=== PATIENT | male | born 1955 | race Caucasian/White ===

== ENCOUNTER → 2017-12-16 | Outpatient (CLI) | payer BC ==
[~2017-12-16] MED LIST: FLUT1DIS27; GLIM4TAB; METF-380; METH4TAB PO; MNTL10T; PGLT30T; RSG4T; RT-COMBINH; SITA100T
--- NOTE | 2017-12-16 14:13 | Diagnostic Imaging Report ---
Bilateral knees at 1:55 Indication: Injury, knee pain. Three views of each knee joint were obtained. There are no prior studies available for comparison. There is no fracture, dislocation or acute bony abnormality evident. However there is severe degenerative disease involving both knee joints. Specifically, there is narrowing of the medial compartments of each knee joint and the patellofemoral spaces. There is also extensive chondrocalcinosis of both menisci. The lateral compartments are fairly well maintained. The soft tissues are unremarkable for an acute abnormality. Impression: 1. There is no evidence for an acute bony abnormality. 2. There is severe degenerative disease involving both knee joints including narrowing of the medial compartment of each knee joint and chondrocalcinosis. Dictated by: Dictated on workstation # [id number]
--- NOTE | 2017-12-16 14:17 | Diagnostic Imaging Report ---
EXAMINATION: Left shoulder at 1:52 p.m. INDICATION: Shoulder pain. Three views were obtained. FINDINGS: There is no fracture, dislocation, or acute bony abnormality evident. There is mild degenerative disease of the glenohumeral joint and at least moderate degenerative disease of the acromioclavicular joint. The soft tissues are unremarkable. IMPRESSION: 1. There is no evidence for an acute bony abnormality. 2. If there is clinical concern regarding an injury to the rotator cuff or labrum, then MRI would be recommended for additional evaluation. Dictated by: Dictated on workstation # [id number]
== END ==
LOC: RAD 13:14
PROVIDERS: ATTEND Internal Medicine
DX: S46.002A Unspecified injury of muscle(s) and tendon(s) of the rotator cuff of left shoulder, initial encounter (principal); M17.0 Bilateral primary osteoarthritis of knee; M11.261 Other chondrocalcinosis, right knee; M11.262 Other chondrocalcinosis, left knee
CPT/HCPCS: 73030

== ENCOUNTER → 2017-12-23 | Outpatient (CLI) | payer BC ==
--- NOTE | 2017-12-23 17:38 | Diagnostic Imaging Report ---
PROCEDURE: MRI left upper extremity without contrast. TECHNIQUE: Multiplanar, multisequence non contrast-enhanced MRI of the left upper extremity was accomplished. INDICATION: Chronic left shoulder pain. Reports falling out of bed one year ago. FINDINGS: There is marked thickening of the distal supraspinatus tendon with some increased T2 signal. There is no evidence of full-thickness tear. Infraspinatus and subscapularis tendons appear intact. Long head of the biceps is in the bicipital groove and attaches to the labrum in normal fashion. Labrum appears in good position without obvious tear. Humeral head is in good alignment with the glenoid. Articulating cartilage appears normal. No marrow changes are seen. The AC joint shows good alignment. There is moderate hypertrophic change present. Small undersurface osteophyte is noted. There is noted a small effusion within the synovial space of the shoulder as well as a trace of fluid in the subacromial bursa. No evidence of paralabral cyst. IMPRESSION: 1. There is marked tendinopathy noted of the distal anterior supraspinatus tendon which is diffusely thickened and edematous. There is intersubstance tear though no evidence of a full-thickness tear. 2. Hypertrophic changes of the AC joint with small undersurface osteophyte. Dictated by: Dictated on workstation # [id number]
== END ==
LOC: RAD 15:57
PROVIDERS: ATTEND Internal Medicine
DX: M67.814 Other specified disorders of tendon, left shoulder (principal)
CPT/HCPCS: 73221

== ENCOUNTER 2018-03-12 13:17 | Emergency (ER) | payer BC ==
[~2018-03-12] VITALS: Ht 175.3 cm; Wt 99.8 kg
--- NOTE | 2018-03-12 14:13 | ED Lower Extremity ---
General Chief Complaint: Lower Extremity Stated Complaint: KNEE PAIN Source: patient Exam Limitations: no limitations History of Present Illness Date Seen by Provider: Mar 12, 2018 Time Seen by Provider: 14:01 Initial Comments Patient presents to the ER by private conveyance with chief complaint that he has chronically bad knees and shoulders that he associates with his job. He's following Drs. Stanton because he had a frozen left shoulder and that has been improving area they were noting his right knee pain and took some x-rays of a few months ago. No ones worked on his never had an injection and it is never been on steroids for it. He can't take NSAIDs because he has severe asthma that even put him in the ICU intubated before. He is using Tylenol as not helping. Most recently in the last to 3 months his knee pain on his right knee is been acting up and then yesterday after going to [place] walking around he was getting lack of extension in a lot of pain in his right knee but then this morning when he got up he was barely able to even stand on it and couldn't extend it all away. He was told the x-rays revealed he had arthritis. Never had a surgery or scope on the knee. Allergies and Home Medications Allergies Coded Allergies: No Known Drug Allergies (Unverified Allergy, Mild, 10/31/08) Home Medications Methylprednisolone 4 Mg/Dose-Pack Tab.ds.pk, 0 PO UD FOR ALLERGIC REACTION Prescribed by: DELORIS AVERY on 10/31/082047 Patient Home Medication List Home Medication List Reviewed: Yes Review of Systems Constitutional: No chills, No diaphoresis EENTM: No ear discharge, No ear pain Respiratory: No cough, No short of breath Cardiovascular: No chest pain, No edema Gastrointestinal: No abdominal pain, No constipation, No nausea Genitourinary: No discharge, No dysuria Musculoskeletal: No back pain; joint pain Skin: No lumps, No rash Past Fbdgwnd-Djrhds-Nhnmmv Hx Patient Social History Alcohol Use: Occasionally Uses Recreational Drug Use: No Smoking Status: Never a Smoker Recent Foreign Travel: No Contact w/Someone Who Travel: No Past Medical History Reproductive Disorders: No Physical Exam Vital Signs Vital Signs - First Documented 03/12/18 13:55 Temp 98.9 Pulse 88 Resp 18 B/P (MAP) 144/89 (107) Pulse Ox 98 O2 Delivery Room Air Capillary Refill : Height, Weight, BMI Height: '" Weight: lbs. oz. kg; BMI Method: General Appearance: WD/WN, no apparent distress HEENT: PERRL/EOMI, pharynx normal Cardiovascular: normal peripheral pulses, regular rate, rhythm Respiratory: no respiratory distress, no accessory muscle use Knees: left knee non-tender, left knee normal inspection, left knee normal range of motion, left knee no evidence of injury; right knee joint effusion (mod ), right knee pain, right knee soft tissue tenderness, right knee swelling (no discoloration, erythema, warmth.), right knee other (non-ballotable patella) Ankles: bilateral ankle non-tender, bilateral ankle normal inspection, bilateral ankle normal range of motion, bilateral ankle no evidence of injury Neurologic/Tendon: normal sensation, normal motor functions, responds to pain Neurologic/Psychiatric: alert, normal mood/affect Skin: normal color, warm/dry Procedures/Interventions Progress Patient's right knee was cleaned thoroughly with alcohol in the upright flexed position and then cleaned again with chlorhexidine soap water and allowed to dry. We then draped in the usual sterile fashion using sterile gloves week use a 25-gauge 1-1/2 inch needle to locate the right knee intra-articular space. Only a small amount of fluid was able to be drawn less than a milliliter. We then put 40 mg of Depo-Medrol and 2 mL each of 1% lidocaine and half percent Marcaine without epinephrine and the joint space. The patient tolerated procedure well. Needle nicholas was then covered with a Band-Aid. Progress/Results/Core Measures Results/Orders My Orders Orders - ORION PAZ Methylprednisolone Acetate Inj (Depo-Med (03/12/18 14:30) Bupivacaine 0.5% Injection (Sensorcaine (03/12/18 14:30) Lidocaine 1% Inj 20 Ml (Xylocaine 1% Inj (03/12/18 14:30) Vital Signs/I&O 03/12/18 03/12/18 13:55 14:35 Temp 98.9 Pulse 88 77 Resp 18 16 B/P (MAP) 144/89 (107) 138/79 Pulse Ox 98 98 O2 Delivery Room Air Room Air Progress Progress Note : Time: 14:21 Progress Note We discussed injecting the knee versus just trying orals versus just following up with the surgeon and I suggest she follow-up with surgeon regardless of what we do. The patient after hearing the risks, benefits and alternatives have elected to have any injections were going to use 40 mg of Depo-Medrol and a solution of 2 cc of 0.5% Marcaine without epinephrine and 2 cc of 1% lidocaine without epinephrine. We may pull a little fluid off as he does have a decent sized effusion. He has chondrocalcinosis on the anterior medial approach so we may have to try and anterior lateral approach. Diagnostic Imaging Diagonstic Imaging: Xray (12/16/17) Plain Films/CT/US/NM/MRI: knee Comments NAME: LEATHA MORENO [facility] REC#: [id number] PHYSICIAN: KAVITA VELASQUEZ DO CC: REAGAN SOOD MD; KAVITA VELASQUEZ DO Page 1 of 1 RADIOLOGY REPORT [facility]IA [facility]. [place], [place] CC: REAGAN SOOD MD; KAVITA VELASQUEZ DO Page 1 of 1 RADIOLOGY REPORT NAME: LEATHA MORENO [facility] REC#: [id number] PT STATUS: REG CLI : 1955 PHYSICIAN: KAVITA VELASQUEZ DO ADMIT DATE: 12/16/17/RAD Signed Date of Exam: 12/16/17 KNEE, 3 VIEWS, BILATERAL Bilateral knees at 1:55 Indication: Injury, knee pain. Three views of each knee joint were obtained. There are no prior studies available for comparison. There is no fracture, dislocation or acute bony abnormality evident. However there is severe degenerative disease involving both knee joints. Specifically, there is narrowing of the medial compartments of each knee joint and the patellofemoral spaces. There is also extensive chondrocalcinosis of both menisci. The lateral compartments are fairly well maintained. The soft tissues are unremarkable for an acute abnormality. Impression: 1. There is no evidence for an acute bony abnormality. 2. There is severe degenerative disease involving both knee joints including narrowing of the medial compartment of each knee joint and chondrocalcinosis. Dictated by: Dictated on workstation # [id number] Dict: 12/16/17 1408 Trans: 12/17/17 1143 Interpreted by: REAGAN SOOD MD Electronically signed by: REAGAN SOOD MD 12/17/17 1143 Departure Impression Primary Impression: Knee pain Qualified Codes: M25.561 - Pain in right knee Additional Impression: Osteoarthritis Qualified Codes: M17.11 - Unilateral primary osteoarthritis, right knee Disposition: 01 HOME, SELF-CARE Condition: Improved Departure-Patient Inst. Decision time for Depature: 15:09 Referrals: KAVITA VELASQUEZ DO (PCP/Family) Primary Care Physician DARRIN STANTON MD Patient Instructions: Chronic Knee Pain (DC) Add. Discharge Instructions: Follow-up with your orthopedic surgeon in the next 2-4 weeks as needed for your right knee pain. Follow-up with your primary care doctor as needed. Continue using Tylenol 1000 mg every 8 hours as needed. If you need something more for pain you can use one tablet of the hydrocodone every 6 hours. All discharge instructions reviewed with patient and/or family. Voiced understanding. Scripts Diclofenac Sodium (Voltaren) 100 Gm Gel..gram. 1 GM TP Q8H PRN for PAIN-MODERATE for 14 Days, #1 TUBE 1 Refill Prov: ORION PAZ 03/12/18 Hydrocodone Bit/Acetaminophen (Hydrocodone/Acetaminophen 5/325mg Tablet) 1 Tab Tab 1 EACH PO Q6H PRN for BREAKTHROUGH PAIN, #15 TAB 0 Refills Prov: ORION PAZ 03/12/18 Copy Copies To 1: KAVITA VELASQUEZ DO; DARRIN STANTON MD, TITUS J Mar 12, 2018 14:13
[2018-03-12] MEDS ORDERED: methylPREDNISolone 40 MG/ML (DEPO MEDROL) VIAL IA ONE (14:30)
[2018-03-12] MEDS ORDERED: BUPIVACAINE 0.5% 30 ML (SENSORCAINE) VIAL INJ ONE (14:30)
[2018-03-12] MEDS ORDERED: LIDOCAINE 1% INJ 20 ML 20 ML VIAL INJ ONE (14:30)
[2018-03-12] MEDS ORDERED: DICL100G18 TP (15:12)
[2018-03-12] MEDS ORDERED: ACHD5005 PO (15:12)
[2018-03-12 15:38] VITALS: BP 138/79
== END 2018-03-12 15:39 | disposition home or self-care (01) ==
LOC: EDUNIT# 13:17 → ER 13:18
DX: M17.0 Bilateral primary osteoarthritis of knee (principal); J45.909 Unspecified asthma, uncomplicated; Z79.52 Long term (current) use of systemic steroids
CPT/HCPCS: 96372

== ENCOUNTER 2018-06-19 20:25 | Emergency (ER) | payer BC ==
[~2018-06-19] VITALS: Ht 185.4 cm; Wt 113.4 kg
[~2018-06-19 20:25] MED LIST changes: +ACHD5005 PO; +DICL100G18 TP
--- NOTE | 2018-06-19 21:04 | ED Upper Extremity ---
General Chief Complaint: Upper Extremity Stated Complaint: L SHOULDER SURGERY/WRIST AND HAND SWELLING Nursing Triage Note: Pt ambulated to triage . Pt reports having L shoulder surgery on Tue to remove some cartiledge due to prior injury and now c/o hand/wrist pain and swelling. Pt reports hand/wrist pain began on way home after surgery. Pt reports swelling began today and now pt is unable to remove wedding ring. Pt's fingers appear blanched. Pt able to move fingers and has feeling in fingers. Nursing Sepsis Screen: No Definite Risk Source: patient Exam Limitations: no limitations History of Present Illness Date Seen by Provider: Jun 19, 2018 Time Seen by Provider: 21:04 Allergies and Home Medications Allergies Coded Allergies: No Known Drug Allergies (Unverified Allergy, Mild, 10/31/08) Home Medications Diclofenac Sodium 100 Gm Gel..gram., 1 GM TP Q8H PRN for PAIN-MODERATE Prescribed by: ORION PAZ on 03/12/18 1512 Hydrocodone Bit/Acetaminophen 1 Tab Tab, 1 EACH PO Q6H PRN for BREAKTHROUGH PAIN Prescribed by: ORION PAZ on 03/12/18 1512 Methylprednisolone 4 Mg/Dose-Pack Tab.ds.pk, 0 PO UD FOR ALLERGIC REACTION Prescribed by: DELORIS AVERY on 10/31/082047 Past Sekecie-Wizzww-Wjqktp Hx Patient Social History 2nd Hand Smoke Exposure: No Recent Foreign Travel: No Contact w/Someone Who Travel: No Recent Infectious Disease Expo: No Past Medical History Respiratory: Yes Cardiac: No Neurological: No Reproductive Disorders: No Sexually Transmitted Disease: No Gastrointestinal: No Musculoskeletal: Yes (arthritis) Endocrine: Yes Blood Disorders: No Physical Exam Vital Signs Vital Signs - First Documented 06/19/18 20:40 Temp 98.6 Pulse 83 Resp 14 B/P (MAP) 152/84 (106) Pulse Ox 93 O2 Delivery Room Air Capillary Refill : Less Than 3 Seconds Height, Weight, BMI Height: 6'1.00" Weight: 250lbs. oz. 113.853613et; BMI Method:Stated Progress/Results/Core Measures Results/Orders Vital Signs/I&O 06/19/18 20:40 Temp 98.6 Pulse 83 Resp 14 B/P (MAP) 152/84 (106) Pulse Ox 93 O2 Delivery Room Air Blood Pressure Mean: 106 Departure Impression Primary Impression: Swelling of left hand Additional Impression: Post-op pain Disposition: 01 HOME, SELF-CARE Condition: Stable/Unchanged Departure-Patient Inst. Decision time for Depature: 21:22 Referrals: KAVITA VELASQUEZ DO (PCP/Family) Primary Care Physician Patient Instructions: How to Use a Shoulder Sling Add. Discharge Instructions: Elevate the arm as much as possible throughout the night to help facilitate and going down. Use ice to the sore areas at 20 minute intervals. Take your home medications as previously prescribed. Return back to the emergency room for any worsening symptoms or concerns as needed. Call Dr. Stanton's office tomorrow morning to schedule a closer appointment time. All discharge instructions reviewed with patient and/or family. Voiced understanding. LANI MUNOZ Jun 19, 2018 21:04
[2018-06-19 21:57] VITALS: BP 152/84
== END 2018-06-19 21:57 | disposition home or self-care (01) ==
LOC: EDUNIT# 20:25 → ER 20:26
DX: G89.18 Other acute postprocedural pain (principal); M79.642 Pain in left hand; Z98.890 Other specified postprocedural states; Z79.52 Long term (current) use of systemic steroids
CPT/HCPCS: 99282

== ENCOUNTER → 2018-12-04 | Outpatient (CLI) | payer BC ==
[~2018-12-04] VITALS: Ht 185.4 cm; Wt 113.4 kg
[~2018-12-04] MED LIST changes: +CATHETER FLUSH 10 ML SYR IV PRN; +REGADENOSON 0.4 MG/5 ML SYR (LEXISCAN) IV ONE
--- NOTE | 2018-12-04 15:20 | STRESS TEST ---
DATE OF SERVICE: 12/04/2018 NUCLEAR MYOVIEW REPORT REFERRING PHYSICIAN: Dr. Joel Gregg. In summary, the patient was injected with 10.65 mCi of technetium-99 Myoview and the resting images were obtained. Then, the patient received a stress dose of 31.4 mCi of technetium-99 Myoview. The test was supervised by Dr. Gregg. The resting and stress images were reviewed and compared in the short axis, horizontal long axis, and vertical long axis views. Review of the images showed diaphragmatic attenuation affecting the quality of the images with mild decreased uptake at the inferior wall with no significant reversibility and no significant ischemia. SSS is 0. TID value 0.97. On the gated images, the left ventricle appeared to be normal size with normal contractility. The calculated ejection fraction 58%. CONCLUSION: 1. Diaphragmatic attenuation affecting the quality of the images with mild decreased uptake at the inferior wall, no significant ischemia or infarction was noted. 2. Normal left ventricular size with normal contractility. Calculated ejection fraction 58%. Job ID: [id number] DocumentID: [id number] Dictated Date: 12/04/2018 11:35:57 Cinnamon Grinder Date: 12/04/2018 15:17:07 Dictated By: JUNG SHERWOOD MD
== END ==
LOC: CARD 06:34
PROVIDERS: ATTEND Internal Medicine
DX: I10 Essential (primary) hypertension (principal)
CPT/HCPCS: 78452; 93017

== ENCOUNTER 2018-12-27 07:26 | Inpatient (IN) | payer BC ==
--- NOTE | 2018-12-18 11:40 | HISTORY AND PHYSICAL ---
DATE OF SERVICE: ADMISSION HISTORY AND PHYSICAL DATE OF ADMISSION: 12/27/2018. This will be for inpatient admission on 12/27/2018 for left total knee arthroplasty. The patient will require regular inpatient admission due to gait abnormalities, pain management issues and comorbidities. HISTORY OF PRESENT ILLNESS: The patient is a 63-year-old gentleman with longstanding progressive bilateral knee pain, left worse than right. He has undergone treatment with injections without relief. His radiographs reveal severe tricompartmental osteoarthritis. He reports because of the knee. REVIEW OF SYSTEMS: No chest pain, no shortness of breath. No dysuria. PAST MEDICAL HISTORY: Type 2 diabetes, asthma, arthritis, obstructive sleep apnea. PAST SURGICAL HISTORY: Left knee arthroscopy, trigger finger, left shoulder manipulation. FAMILY HISTORY: Noncontributory. PRIMARY CARE PROVIDER: Dr. Gregg. MEDICATIONS: 1. Tresiba. 2. Metformin. 3. Advair. 4. Salmeterol. 5. Gabapentin 6. Enalapril. 7. Montelukast. 8. Finasteride. 9. NovoLog. ALLERGIES: No known drug allergies. SOCIAL HISTORY: The patient drinks alcohol occasionally. Denies tobacco use. PHYSICAL EXAMINATION: GENERAL: The patient is a well-developed, well-nourished, in no acute distress. HEENT: Normocephalic, atraumatic. Pupils are equal, round and reactive to light. Oropharynx is clear. NECK: Supple. No lymphadenopathy. LUNGS: Clear to auscultation bilaterally. HEART: Regular rate and rhythm. ABDOMEN: Soft, nontender, nondistended. EXTREMITIES: The left knee demonstrates varus alignment. Ambulates with an antalgic gait. Range of motion 0/2/115. There is no varus valgus laxity. Negative anterior and posterior drawer. Marked patellofemoral crepitus. Moderate effusion is noted. There is no erythema or warmth. IMPRESSION: Left knee osteoarthritis, severe unresponsive to conservative measures. PLAN: Left total knee arthroplasty. The risks, benefits, options, ramifications and recovery were discussed at length with the patient. He understands and wishes to proceed. This will be for inpatient admission, date of service, date of surgery on 12/27/2018. Job ID: [id number] DocumentID: [id number] Dictated Date: 12/18/2018 11:16:49 Wire Stripper Date: 12/18/2018 11:39:57 Dictated By: DARRIN CHARLTON MD
--- NOTE | 2018-12-22 09:57 | NUR ---
PREOP SENT OVER A COPY OF THE PATIENTS LIST, I HAD A LIST FAXED OVER FROM [facility] AND COMPARED THAT WITH THE PATIENTS LIST. I CALLED THE PATIENT TO CLARIFY SOME DOSE CHANGES. DEMETRIUS FILLED: 12-14-18 COMBIVENT RESPIMAT 1 PUFF Q6H PRN 12-08-18 FINASTERIDE 5MG HS 12-08-18 METFORMIN 1000MG BID 12-08-18 SINGULAIR 10MG DAILY 12-08-18 NOVOLOG FLEXPEN 5 UNITS DAILY 12-08-18 ALBUTEROL HFA (STATES WAS FROM URGENT CARE, USUALLY ONLY USES COMBIVENT/ADVAIR) 11-29-18 ADVAIR 500 BID 11-29-18 GABAPENTIN 300MG BID (STATES HE TAKES 2 CAPSULES BID) 11-16-18 ENALAPRIL 10MG DAILY (STATES HE TAKES 2 DAILY) 11-13-18 DICLOFENAC GEL 1 GM Q8H PRN 03-26-18 TRESIBA 65 UNITS DAILY (STATES HE HAS A STOCK PILE AT HOME FROM WHEN HE DIDN'T TAKE IT SCHEDULED)
[2018-12-27] VITALS (13 sets, daily range): BP systolic 158–198; BP diastolic 76–104
[~2018-12-27] VITALS: Ht 185.4 cm; Wt 116.3 kg
[~2018-12-27 07:26] MED LIST changes: -CATHETER FLUSH 10 ML SYR IV PRN; +ENAL10TA PO; +FINA5TAB6 PO; +FLUT1DIS27 IH; +GABA-488 PO; +INSU100I14 SQ; +INSU100I32 SQ; +IPRA4AER IH; +METF-399 PO; +MONT10TA24 PO; -REGADENOSON 0.4 MG/5 ML SYR (LEXISCAN) IV ONE
[2018-12-27] MEDS ORDERED: diphenhydrAMINE 50 MG/ML INJ (BENADRYL) IVP PRN (07:30)
[2018-12-27] MEDS ORDERED: morphine PCA 100 MG/100 ML BAG IV PRN (07:30)
[2018-12-27] MEDS ORDERED: ONDANSETRON 4 MG/2 ML (SDV) Z0FRAN IVP PRN ×2 (07:30→11:15)
[2018-12-27] MEDS ORDERED: ACETAMINOPHEN 325 MG TABLET PO PRN (07:30)
[2018-12-27] MEDS ORDERED: CEFUROXIME INJECTION 750 MG in WATER (STERILE) FOR INJECTION 7.5 ML IV ONE (07:45)
[2018-12-27] MEDS ORDERED: INTRA-ARTICULAR IU ONE ×5 (07:45)
[2018-12-27] MEDS: LACTATED RINGERS 1,000 ML IV PRN ×2 (07:50→09:50)
[2018-12-27] MEDS ORDERED: CEFUROXIME 1.5 GM (ZINACEF) VIAL ONE (07:57)
[2018-12-27] MEDS ORDERED: MIDAZOLAM 2 MG/2 ML (VERSED) VIAL ONE (08:33)
[2018-12-27] MEDS ORDERED: SEVOFLURANE (ULTANE) 15 ML INHAL SOLN ONE ×2 (08:33→10:44)
[2018-12-27] MEDS ORDERED: fentaNYL INJECTION 100 MCG/2 ML AMP ONE ×2 (08:33→09:34)
[2018-12-27] MEDS ORDERED: proPOfol 200 MG/20 ML (DIPRIVAN) VIAL IV ONE (08:33)
[2018-12-27] MEDS ORDERED: BUPIVACAINE 0.5% 30 ML (SENSORCAINE) VIAL ONE (08:33)
[2018-12-27] MEDS ORDERED: TRANEXAMIC ACID 100 MG/ML 10 ML INJECTION IV ONE (08:33)
[2018-12-27] MEDS ORDERED: LIDOCAINE PF 2% 5 ML (XYLOCAINE) VIAL ONE (08:33)
[2018-12-27] MEDS ORDERED: ONDANSETRON 4 MG/2 ML (SDV) Z0FRAN ONE (08:33)
--- NOTE | 2018-12-27 09:13 | Progress Note-Pre Operative ---
Pre-Operative Progress Note H&P Reviewed The H&P was reviewed, patient examined and no changes noted. Date Seen by Provider: Dec 27, 2018 Time Seen by Provider: 07:35 Date H&P Reviewed: Dec 27, 2018 Time H&P Reviewed: 09:13 Pre-Operative Diagnosis: left knee primary osteoarthritis DARRIN CHARLTON MD Dec 27, 2018 09:13
--- NOTE | 2018-12-27 09:14 | Progress Note-Post Operative ---
Post-Operative Progess Note Surgeon (s)/Barge Worker (s) Surgeon DARRIN CHARLTON MD Barge Worker: Pedro Tobias Pre-Operative Diagnosis left knee primary osteoarthritis Post-Operative Diagnosis left knee primary osteoarthritis Procedure & Operative Findings Date of Procedure 12/27/18 Procedure Performed/Findings left total knee arthroplasty Anesthesia Type GETA Estimated Blood Loss Estimated blood loss (mL): minimal Specimens/Packing Specimens Removed none Packing: none DARRIN CHARLTON MD Dec 27, 2018 09:14
--- NOTE | 2018-12-27 09:15 | Progress Note-Post Operative ---
Post-Operative Progess Note Surgeon (s)/Corporate Coordinator (s) Surgeon DARRIN CHARLTON MD Corporate Coordinator: Pedro Tobias Pre-Operative Diagnosis left knee primary osteoarthritis Post-Operative Diagnosis left knee primary osteoarthritis Procedure & Operative Findings Date of Procedure 12/27/18 Procedure Performed/Findings left total knee arthroplasty Anesthesia Type GETA Estimated Blood Loss Estimated blood loss (mL): minimal Specimens/Packing Specimens Removed none Packing: none DARRIN CHARLTON MD Dec 27, 2018 09:15
[2018-12-27] MEDS ORDERED: OXYC1TAB87 PO (09:16)
--- NOTE | 2018-12-27 09:18 | D/C HH Face to Face Order ---
D/C Face to Face Orders Instructions for Patient Via [facility], Patient Instructions/FollowUp: three weeks Physician to follow Patient: three weeks Discharge Diet for Home: Regular Diet Patient Data-Allergies,Ht & Wt Patient Allergies: Coded Allergies: No Known Drug Allergies (Unverified , 12/21/18) Height (Feet): 6 Height (Inches): 1.00 Weight (Pounds): 256 Weight (Ounces): 8.0 Home Health Need/Face to Face Date of Face to Face: Dec 27, 2018 Clinical Findings: Instability, Muscle weakness, Non or partial weight bearing, Pain with ambulation, Unsteady gait I have seen Pt [id number]: Yes Discharged To: Home Diagnosis/Conditions: left total knee arthroplasty Patient is Homebound due to: Azucena fall risk due to instabilty, Muscle we akness, Pain w/ambulation Homebound Status Due to the above stated illness, injury or surgical procedure (medical condition or diagnosis) and associated clinical findings, the patient is homebound because of his/her inability to leave home except with aid of a supportive device and/or person AND leaving the home requires a considerable and taxing effort or is medically contraindicated. Pt req the following assistanc: [facility] Nursing Orders Home Health Services Order: Physical Therapy-Evaluate & Treat DC left knee omero and apply steri strips 01/10/19 ok to begin PT on Tuesday [facility] Start Date: Dec 27, 2018 Therapy Orders Therapy Orders: Physical Therapy, PT to assess for OT Therapy Specific Orders: Eval assistive deivces, Gait training, Increase strength/endurance, Provider maintenance therapy, Restore ROM Certify Stmt I certify that this patient is under my care and that I, a nurse practitioner or a physician; a ex assistant/program director working with me, had a face to face encounter that - meets the physician face to face encounter requirements with this patient as dated. DARRIN CHARLTON MD Dec 27, 2018 09:18
--- OUTSIDE RECORDS SUMMARY | 2018-12-27 10:11 | XMS REPORT | Continuity of Care Document ---
Author Organization Unknown Address Unknown Allergies Active Description Code Type Severity Reaction Onset Reported/Identified Relationship to Patient Clinical Status Yes No Known Drug Allergies [id number] Drug Allergy Mild N/A 10/31/2008 Yes No Known Drug Allergies [id number] Drug Allergy Unknown N/A 12/21/2018 Medications There is no data. Problems Date Dx Coded Attending Type Code Diagnosis Diagnosed By 07/28/2009 Ot V12.72 PERSONAL HISTORY OF COLONIC POLYPS 07/28/2009 Ot V67.09 SURGERY FOLLOW- UP, OTHER SURGERY 01/09/2016 KAVITA VELASQUEZ DO Ot E11.65 TYPE 2 DIABETES MELLITUS WITH HYPERGLYCE 01/30/2016 KAVITA VELASQUEZ DO Ot E11.65 TYPE 2 DIABETES MELLITUS WITH HYPERGLYCE 06/14/2016 KAVITA VELASQUEZ DO Ot E11.65 TYPE 2 DIABETES MELLITUS WITH HYPERGLYCE 06/16/2016 KAVITA VELASQUEZ DO Ot E11.65 TYPE 2 DIABETES MELLITUS WITH HYPERGLYCE 06/16/2016 KAVITA VELASQUEZ DO Ot J18.9 PNEUMONIA, UNSPECIFIED ORGANISM 06/20/2016 KAVITA VELASQUEZ DO Ot E11.65 TYPE 2 DIABETES MELLITUS WITH HYPERGLYCE 06/20/2016 KAVITA VELASQUEZ DO, Ot J18.9 PNEUMONIA, UNSPECIFIED ORGANISM 06/23/2016 KAVITA VELASQUEZ DO Ot E11.65 TYPE 2 DIABETES MELLITUS WITH HYPERGLYCE 06/23/2016 KAVITA VELASQUEZ DO, Ot J18.9 PNEUMONIA, UNSPECIFIED ORGANISM 12/16/2017 KAVITA VELASQUEZ DO Ot E11.65 TYPE 2 DIABETES MELLITUS WITH HYPERGLYCE 12/16/2017 KAVITA VELASQUEZ DO, Ot J18.9 PNEUMONIA, UNSPECIFIED ORGANISM 12/19/2017 KAVITA VELASQUEZ DO Ot M11.261 OTHER CHONDROCALCINOSIS, RIGHT KNEE 12/19/2017 KAVITA VELASQUEZ DO Ot M11.262 OTHER CHONDROCALCINOSIS, LEFT KNEE 12/19/2017 KAVITA VELASQUEZ DO Ot M17.0 BILATERAL PRIMARY OSTEOARTHRITIS OF KNEE 12/19/2017 VELASQUEZKAVITA CHAVEZ DO Ot S46.002A UNSP INJ MUSC/TEND THE ROTATOR CUFF OF L 12/22/2017 KAVITA VELASQUEZ DO Ot M11.261 OTHER CHONDROCALCINOSIS, RIGHT KNEE 12/22/2017 KAVITA VELASQUEZ DO Ot M11.262 OTHER CHONDROCALCINOSIS, LEFT KNEE 12/22/2017 VELASQUEZKAVITA CHAVEZ DO Ot M17.0 BILATERAL PRIMARY OSTEOARTHRITIS OF KNEE 12/22/2017 KAVITA VELASQUEZ DO Ot S46.002A UNSP INJ MUSC/TEND THE ROTATOR CUFF OF L 12/26/2017 KAVITA VELASQUEZ DO Ot M67.814 OTHER SPECIFIED DISORDERS OF TENDON, LEF 01/03/2018 KAVITA VELASQUEZ DO Ot M67.814 OTHER SPECIFIED DISORDERS OF TENDON, LEF 03/12/2018 ORION PAZ MD Ot J45.909 UNSPECIFIED ASTHMA, UNCOMPLICATED 03/12/2018 ORION PAZ MD Ot M17.0 BILATERAL PRIMARY OSTEOARTHRITIS OF KNEE 03/12/2018 ORION PAZ MD Ot M25.561 PAIN IN RIGHT KNEE 03/12/2018 ORION PAZ MD Ot 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 03/14/2018 ORION PAZ MD Ot J45.909 UNSPECIFIED ASTHMA, UNCOMPLICATED 03/14/2018 ORION PAZ MD Ot M17.0 BILATERAL PRIMARY OSTEOARTHRITIS OF KNEE 03/14/2018 ORION PAZ MD Ot M25.561 PAIN IN RIGHT KNEE 03/14/2018 ORION PAZ MD Ot Z79.52 [facility] (CURRENT) USE OF SYSTEMIC STER 06/19/2018 BERNOT LANI Ot G89.18 OTHER ACUTE POSTPROCEDURAL PAIN 06/19/2018 BERNOT, LANI Ot M79.642 PAIN IN LEFT HAND 06/19/2018 BERNOT LANI Ot Z79.52 [facility] (CURRENT) USE OF SYSTEMIC STER 06/19/2018 BERNOT LANI Ot Z98.890 OTHER SPECIFIED POSTPROCEDURAL STATES 12/08/2018 KAVITA VELASQUEZ DO Ot I10 ESSENTIAL (PRIMARY) HYPERTENSION 12/21/2018 KAVITA VELASQUEZ DO Ot I10 ESSENTIAL (PRIMARY) HYPERTENSION Procedures There is no data. Results Test Result Range Complete blood count (CBC) with automated white blood cell (WBC) differential - 06/14/16 17:15 Blood leukocytes automated count (number/volume) 9.6 10*3/uL 4.3-11.0 Blood erythrocytes automated count (number/volume) 5.03 10*6/uL 4.35-5.85 Venous blood hemoglobin measurement (mass/volume) 14.2 g/dL 13.3-17.7 Blood hematocrit (volume fraction) 43 % 40-54 Automated erythrocyte mean corpuscular volume 85 [foz_us] 80-99 Automated erythrocyte mean corpuscular hemoglobin (mass per erythrocyte) 28 pg 25-34 Automated erythrocyte mean corpuscular hemoglobin concentration measurement (mass/volume) 33 g/dL 32-36 Automated erythrocyte distribution width ratio 14.2 % 10.0- 14.5 Automated blood platelet count (count/volume) 286 10*3/uL 130-400 Automated blood platelet mean volume measurement 9.4 [foz_us] 7.4-10.4 Automated blood neutrophils/100 leukocytes 71 % 42-75 Automated blood lymphocytes/100 leukocytes 20 % 12-44 Blood monocytes/100 leukocytes 7 % 0-12 Automated blood eosinophils/100 leukocytes 2 % 0-10 Automated blood basophils/100 leukocytes 0 % 0-10 Blood neutrophils automated count (number/volume) 6.8 10*3 1.8-7.8 Blood lymphocytes automated count (number/volume) 1.9 10*3 1.0-4.0 Blood monocytes automated count (number/volume) 0.7 10*3 0.0- 1.0 Automated eosinophil count 0.2 10*3/uL 0.0-0.3 Automated blood basophil count (count/volume) 0.0 10*3/uL 0.0-0.1 Comprehensive metabolic panel - 06/14/16 17:15 Serum or plasma sodium measurement (moles/volume) 140 mmol/L 135-145 Serum or plasma potassium measurement (moles/volume) 4.4 mmol/L 3.6-5.0 Serum or plasma chloride measurement (moles/volume) 105 mmol/L 98-107 Carbon dioxide 24 mmol/L 21-32 Serum or plasma anion gap determination (moles/volume) 11 mmol/L 5-14 Serum or plasma urea nitrogen measurement (mass/volume) 16 mg/dL 7-18 Serum or plasma creatinine measurement (mass/volume) 1.16 mg/dL 0.60-1.30 Serum or plasma urea nitrogen/creatinine mass ratio 14 NRG Serum or plasma creatinine measurement with calculation of estimated glomerular filtration rate > NRG Serum or plasma glucose measurement (mass/volume) 169 mg/dL 70-105 Serum or plasma calcium measurement (mass/volume) 9.7 mg/dL 8.5-10.1 Serum or plasma total bilirubin measurement (mass/volume) 0.8 mg/dL 0.1-1.0 Serum or plasma alkaline phosphatase measurement (enzymatic activity/volume) 29 U/L 40-136 Serum or plasma aspartate aminotransferase measurement (enzymatic activity/volume) 14 U/L 5-34 Serum or plasma alanine aminotransferase measurement (enzymatic activity/volume) 18 U/L 0-55 Serum or plasma protein measurement (mass/volume) 7.1 g/dL 6.4-8.2 Serum or plasma albumin measurement (mass/volume) 4.1 g/dL 3.2-4.5 Hemoglobin A1c - 06/14/16 17:15 Hemoglobin A1c 8.8 % 4.5-6.2 THYROID STIMULATING HORMONE - 06/14/16 17:15 THYROID STIMULATING HORMONE 1.29 u[iU]/mL 0.35-4.94 Methicillin resistant Staphylococcus aureus (MRSA) screening culture - 12/21/18 13:25 Methicillin resistant Staphylococcus aureus (MRSA) screening culture NEG NR Complete blood count (CBC) with automated white blood cell (WBC) differential - 12/21/18 13:30 Blood leukocytes automated count (number/volume) 8.1 10*3/uL 4.3-11.0 Blood erythrocytes automated count (number/volume) 4.44 10*6/uL 4.35-5.85 Venous blood hemoglobin measurement (mass/volume) 12.0 g/dL 13.3-17.7 Blood hematocrit (volume fraction) 38 % 40-54 Automated erythrocyte mean corpuscular volume 85 [foz_us] 80-99 Automated erythrocyte mean corpuscular hemoglobin (mass per erythrocyte) 27 pg 25-34 Automated erythrocyte mean corpuscular hemoglobin concentration measurement (mass/volume) 32 g/dL 32-36 Automated erythrocyte distribution width ratio 14.6 % 10.0- 14.5 Automated blood platelet count (count/volume) 310 10*3/uL 130-400 Automated blood platelet mean volume measurement 9.2 [foz_us] 7.4-10.4 Automated blood neutrophils/100 leukocytes 68 % 42-75 Automated blood lymphocytes/100 leukocytes 17 % 12-44 Blood monocytes/100 leukocytes 8 % 0-12 Automated blood eosinophils/100 leukocytes 7 % 0-10 Automated blood basophils/100 leukocytes 1 % 0-10 Blood neutrophils automated count (number/volume) 5.5 10*3 1.8-7.8 Blood lymphocytes automated count (number/volume) 1.4 10*3 1.0-4.0 Blood monocytes automated count (number/volume) 0.6 10*3 0.0- 1.0 Automated eosinophil count 0.5 10*3/uL 0.0-0.3 Automated blood basophil count (count/volume) 0.0 10*3/uL 0.0-0.1 Complete urinalysis with reflex to culture - 12/21/18 13:30 Urine color determination YELLOW NRG Urine clarity determination CLEAR NRG Urine pH measurement by test strip 6.5 5-9 Specific gravity of urine by test strip 1.005 1.016-1.022 Urine protein assay by test strip, semi-quantitative 2+ NEGATIVE Urine glucose detection by automated test strip NEGATIVE NEGATIVE Erythrocytes detection in urine sediment by light microscopy NEGATIVE NEGATIVE Urine ketones detection by automated test strip NEGATIVE NEGATIVE Urine nitrite detection by test strip NEGATIVE NEGATIVE Urine total bilirubin detection by test strip NEGATIVE NEGATIVE Urine urobilinogen measurement by automated test strip (mass/volume) NORMAL NORMAL Urine leukocyte esterase detection by dipstick NEGATIVE NEGATIVE Automated urine sediment erythrocyte count by microscopy (number/high power field) NONE NRG Automated urine sediment leukocyte count by microscopy (number/high power field) NONE NRG Bacteria detection in urine sediment by light microscopy NEGATIVE NRG Squamous epithelial cells detection in urine sediment by light microscopy 2-5 NRG Crystals detection in urine sediment by light microscopy NONE NRG Casts detection in urine sediment by light microscopy NONE NRG Mucus detection in urine sediment by light microscopy NEGATIVE NRG Complete urinalysis with reflex to culture NO NRG Erythrocyte sedimentation rate by westergren method - 12/21/18 13:30 Erythrocyte sedimentation rate by westergren method 46 mm 0-30 PT panel in platelet poor plasma by coagulation assay - 12/21/18 13:30 Prothrombin time (PT) in platelet poor plasma by coagulation assay 13.6 s 12.2-14.7 INR in platelet poor plasma or blood by coagulation assay 1.0 0.8-1.4 Comprehensive metabolic panel - 12/21/18 13:30 Serum or plasma sodium measurement (moles/volume) 139 mmol/L 135-145 Serum or plasma potassium measurement (moles/volume) 4.0 mmol/L 3.6-5.0 Serum or plasma chloride measurement (moles/volume) 104 mmol/L 98-107 Carbon dioxide 26 mmol/L 21-32 Serum or plasma anion gap determination (moles/volume) 9 mmol/L 5-14 Serum or plasma urea nitrogen measurement (mass/volume) 11 mg/dL 7-18 Serum or plasma creatinine measurement (mass/volume) 1.01 mg/dL 0.60-1.30 Serum or plasma urea nitrogen/creatinine mass ratio 11 NRG Serum or plasma creatinine measurement with calculation of estimated glomerular filtration rate > NRG Serum or plasma glucose measurement (mass/volume) 137 mg/dL 70-105 Serum or plasma calcium measurement (mass/volume) 9.5 mg/dL 8.5-10.1 Serum or plasma total bilirubin measurement (mass/volume) 0.8 mg/dL 0.1-1.0 Serum or plasma alkaline phosphatase measurement (enzymatic activity/volume) 37 U/L 40-136 Serum or plasma aspartate aminotransferase measurement (enzymatic activity/volume) 13 U/L 5-34 Serum or plasma alanine aminotransferase measurement (enzymatic activity/volume) 18 U/L 0-55 Serum or plasma protein measurement (mass/volume) 7.4 g/dL 6.4-8.2 Serum or plasma albumin measurement (mass/volume) 4.2 g/dL 3.2-4.5 CALCIUM CORRECTED 9.3 mg/dL 8.5-10.1 Blood type T Indirect antibody screen panel - 12/21/18 13:30 ABO+Rh group OP NRG Blood group antibody screen NEGATIVE NRG Capillary blood glucose measurement by glucometer (mass/volume) - 12/27/18 07:43 Capillary blood glucose measurement by glucometer (mass/volume) 122 mg/dL 70-110 Encounters ACCT No. Visit Date/Time Discharge Status Pt. Type Provider Facility Loc./Unit Complaint [id number] 12/21/2018 12:50:00 12/21/2018 16:19:00 DIS Outpatient DARRIN CHARLTON MD [facility] PREOP OSTEOARTHRITIS LEFT KNEE [id number] 12/04/2018 06:34:00 12/04/2018 23:59:59 CLS Outpatient KAVITA VELASQUEZ DO [facility] CARD HYPERTENSION [id number] 06/19/2018 20:26:00 06/19/2018 21:57:00 DIS Emergency LANI MUNOZ [facility] ER L SHOULDER SURGERY/WRIST AND HAND SWELLING [id number] 03/12/2018 13:18:00 03/12/2018 15:39:00 DIS Emergency JACKSON MCKEON, ORION Horne [facility] ER KNEE PAIN [id number] 12/23/2017 15:57:00 12/23/2017 23:59:59 CLS Outpatient KAVITA VELASQUEZ DO [facility] RAD LEFT SHOULDER PAIN [id number] 12/16/2017 13:14:00 12/16/2017 23:59:59 CLS Outpatient KAVITA VELASQUEZ DO [facility] RAD KNEE PAIN [id number] 06/14/2016 16:56:00 06/14/2016 23:59:59 CLS Outpatient KAVITA VELASQUEZ DO [facility] RAD J18.9, E11.65 [id number] 01/08/2016 11:35:00 01/08/2016 23:59:59 CLS Outpatient KAVITA VELASQUEZ DO [facility] LAB DM TYPE II W/ HYPERGLYCEMIA [id number] 12/27/2018 09:45:00 PEN Preadmit DARRIN CHARLTON MD OSTEOARTHRITIS LEFT KNEE [id number] 07/28/2009 10:20:00 Document Registration
[2018-12-27] MEDS ORDERED: ROCURONIUM 10 MG/ML 5 ML SYRINGE IV ONE (10:13)
[2018-12-27] MEDS ORDERED: GLYCOPYRROLATE 0.2 MG/ML (ROBINUL) 2 ML VIAL ONE (10:44)
[2018-12-27] MEDS ORDERED: NEOSTIGMINE 1 MG/ML 5 ML SYRINGE ONE (10:44)
[2018-12-27] MEDS ORDERED: HYDROmorphone 2 MG/ML VIAL (DILAUDID) IV ONE (11:15)
[2018-12-27] MEDS ORDERED: morphine INJ 10 MG/ML 1ML (SYR OR VIAL) IVP ONE (11:15)
[2018-12-27] MEDS ORDERED: LABETALOL HCL 100 MG/20 ML VIAL IV PRN (11:15)
[2018-12-27] MEDS ORDERED: morphine INJ 10 MG/ML 1ML (SYR OR VIAL) ONE (11:18)
[2018-12-27] MEDS ORDERED: LABETALOL HCL 20 MG/4 ML VIAL ONE (11:18)
--- NOTE | 2018-12-27 11:52 | Diagnostic Imaging Report ---
INDICATION: Left knee replacement. Time of exam 11:24 a.m. FINDINGS: Two views of the left knee demonstrate postop changes of total knee arthroplasty. Prosthetic elements are in good position. No fracture or loosening is seen. Overlying skin omero are noted. IMPRESSION: Satisfactory postop appearance to the left knee. Dictated by: Dictated on workstation # [id number]
--- NOTE | 2018-12-27 13:07 | Progress Note-Standard ---
Standard Progress Note Progress Notes/Assess & Plan Date Seen by a Provider: Dec 27, 2018 Time Seen by a Provider: 13:06 Progress/Assessment & Plan post op check no complaints radiographs--HW well positioned without fracture LLE--2 plus DP pulse with brisk cap refill. intact sensation throughout. Intact DF and PF of toes and ankle s/p LTKA mobilize as able DARRIN CHARLTON MD Dec 27, 2018 13:07
[2018-12-27] MEDS: NS IV 1000 ML 1,000 ML IV SCH (14:12)
--- NOTE | 2018-12-27 14:12 | Consultation-Hospitalist ---
HPI History of Present Illness: HPI/Chief Complaint CC: S/p left total knee replacement by Dr. Stanton POD# 0 HPI: This is a 63yoWM clinic patient of Dr. Gregg with a PMH of SANDRA- maintained compliantly on CPAP in addition to severe asthma that required intubation in 2000 maintained on Advair and Combivent without any need of specialty consultation, who presents after an uncomplicated left total knee replacement. At this current time, Pt is drowsy, his is at the bedside and she actually works with a cousin of my husbands and she reports that she knows we will take care of him. I did review his home medication, will check daily labs and monitor him closely and make sure he is using IS. Source: patient, RN/MD Exam Limitations: no limitations Date Seen 12/27/18 Attending Physician Doc Stanton MD PCP Joel Gregg DO Referring Physician Date of Admission Dec 27, 2018 at 07:26 Home Medications & Allergies Home Medications Reviewed patient Home Medication Reconciliation performed by pharmacy medication reconciliations reliability technician and/or nursing. Patients Allergies have been reviewed. Allergies Allergies Coded Allergies No Known Drug Allergies (Unverified12/21/18) Past Fuasvyo-Itxkbg-Bxglyh Hx Past Med/Social Hx: Reviewed Nursing Past Med/Soc Hx, Reviewed and Corrections made Patient Social History Marrital Status: Employed/Student: unemployed Alcohol Use: Denies Use Recreational Drug Use: No Smoking Status: Never a Smoker 2nd Hand Smoke Exposure: No Physical Abuse Screen: No Sexual Abuse: No Recent Foreign Travel: No Contact w/other who traveled: No Recent Hopitalizations: No Recent Infectious Disease Expo: No Immunizations Up To Date Date of Pneumonia Vaccine: Apr 10, 2018 Seasonal Allergies Seasonal Allergies: Yes Past Medical History Surgeries: Orthopedic Respiratory: Asthma, COPD Currently Using CPAP: Yes Cardiac: High Cholesterol, Hypertension Reproductive: No Sexually Transmitted Disease: No HIV/AIDS: No Genitourinary: Benign Prostatic Hyperpl Musculoskeletal: Arthritis Endocrine: Diabetes, Insulin dep Loss of Vision: Denies Hearing Impairment: Denies History of Blood Disorders: No Adverse Reaction to Blood Boyd: No (N/A) Review of Systems Constitutional: see HPI EENTM: no symptoms reported Respiratory: no symptoms reported Cardiovascular: no symptoms reported Gastrointestinal: no symptoms reported Genitourinary: no symptoms reported Musculoskeletal: no symptoms reported Skin: no symptoms reported Psychiatric/Neurological: No Symptoms Reported All Other Systems Reviewed Negative Unless Noted: Yes Physical Exam Physical Exam Vital Signs Vital Signs - First Documented 12/27/18 11:07 O2 Flow Rate 10 Capillary Refill : Less Than 3 Seconds Height, Weight, BMI Height: 6'1.00" Weight: 256lbs. 8.0oz. 116.770714bd; 33.8 BMI Method:Stated General Appearance: No Apparent Distress, WD/WN, Chronically ill, Obese Eyes: Bilateral Eye Normal Inspection, Bilateral Eye PERRL HEENT: PERRL/EOMI, Normal ENT Inspection, Pharynx Normal Neck: Full Range of Motion, Normal Inspection, Non Tender, Supple, Carotid Bruit Respiratory: Chest Non Tender, Lungs Clear, Normal Breath Sounds, No Accessory Muscle Use, No Respiratory Distress Cardiovascular: Regular Rate, Rhythm, No Edema, No Gallop, No JVD, No Murmur, Normal Peripheral Pulses Gastrointestinal: Normal Bowel Sounds, No Organomegaly, No Pulsatile Mass, Non Tender, Soft Back: Normal Inspection, No CVA Tenderness, No Vertebral Tenderness Extremity: Normal Capillary Refill, Normal Inspection, Normal Range of Motion (ecept left leg in CPM machine), Non Tender, No Calf Tenderness, No Pedal Edema Neurologic/Psychiatric: Alert, Oriented x3, No Motor/Sensory Deficits, Normal Mood/Affect, Other (sedated subtle) Skin: Normal Color, Warm/Dry Lymphatic: No Adenopathy Results Results/Procedures Labs Patient resulted labs reviewed. Assessment/Plan Assessment and Plan Assess & Plan/Chief Complaint Assessment: s/p left knee replacement POD # 0 Asthma moderate persistent DM insulin dependent BPH HTN HLP SANDRA Plan: CPAP/O2 Insulin Monitor labs Nebs? Diagnosis/Problems Diagnosis/Problems (1) Status post total left knee replacement Status: Acute (2) SANDRA on CPAP Status: Chronic (3) Diabetes mellitus, insulin dependent (IDDM), controlled Status: Chronic (4) Hypertension Status: Chronic Qualifiers: Hypertension type: essential hypertension Qualified Codes: I10 - Essential (primary) hypertension (5) Asthma Status: Chronic Qualifiers: Asthma severity: moderate Asthma persistence: persistent Asthma complication type: unspecified Qualified Codes: J45.40 - Moderate persistent asthma, uncomplicated Clinical Quality Measures DVT/VTE Risk/Contraindication: Risk Factor Score Per Nursin RFS Level Per Nursing on Admit: 4+=Very High NILSON OROZCO DO Dec 27, 2018 14:12
[2018-12-27] MEDS: SENNA W/DOCUSATE (SENOKOT S) TABLET PO SCH ×2 (14:25→20:42)
--- NOTE | 2018-12-27 14:56 | NUR ---
CALLED RT KARYNA REGARDING END TIDAL CO2 MONITOR
--- NOTE | 2018-12-27 15:35 | OPERATIVE REPORT ---
DATE OF SERVICE: 12/27/2018 PREOPERATIVE DIAGNOSIS: Left knee primary osteoarthritis. POSTOPERATIVE DIAGNOSIS: Left knee primary osteoarthritis. PROCEDURE: Left total knee arthroplasty. SURGEON: oDc Charlton MD [employer]ES ACCOUNT MANAGER: Pedro Tobias, who assisted throughout the procedure and closed the incision. ANESTHESIA: General endotracheal by Dr. Dumont. TOURNIQUET TIME: 80 minutes at 300 mmHg. ESTIMATED BLOOD LOSS: Minimal. DRAINS: None. COMPLICATIONS: None. POSTOPERATIVE PLAN: Routine protocol. The patient was transferred to the recovery room awake and in stable condition. MATERIALS: MicroPort cemented size 6 femur, cemented size 6 tibia with a 10 mm insert and cemented size 35 patellar button. STATEMENT OF MEDICAL NECESSITY: The patient is a 63-year-old gentleman with longstanding progressive left knee pain. Radiographs revealed severe tricompartmental osteoarthritis. He has undergone treatment with injections, anti-inflammatories and rest without relief. Due to functional impairment and failure to improve with conservative measures, the patient elected to proceed with surgical intervention. DESCRIPTION OF PROCEDURE: After risks and benefits of the procedure were discussed and questions were answered, an informed consent was signed and placed in the chart. The operative site was confirmed in the preoperative holding area initialed by the surgeon. The patient was then transferred to the operating room. After adequate levels of general endotracheal anesthetic were obtained, a timeout was called, confirming the operative site. The left lower extremity was prepped and draped in the usual sterile fashion with the leg elevated and the knee flexed. Tourniquet was inflated to 300 mmHg. Standard anterior approach was utilized. Hemostasis was obtained with cautery. Medial parapatellar arthrotomy was performed leaving 1 cm cuff on the patella for later reattachment. A portion of the fat pad was resected. A subperiosteal release was performed in the proximal medial tibia being careful to stay on the bony surface. The ACL was resected. The PCL was partially released. The intramedullary guide was passed into the distal femur and the femoral cutting block was placed and the cut was made. The femur was sized to a size 6. The 6 cutting block was placed parallel to the epicondylar axis and cuts were made from posterior to anterior. A subperiosteal release was then carefully performed on the posterior distal femur, being careful to stay on the bony surface. Attention was then turned to the tibia. The intramedullary guide was placed and the cutting block was placed. A drop teja transected the intermalleolar axis. This was pinned into position and the cut was made. The tibial baseplate was placed and was felt to be tight. Therefore, an additional 4 mm was resected and the baseplate was placed and drop teja transected the intramedullary axis and this was prepared using the drill and keel punch. The femoral trial was placed as well. A 10 mm insert was placed and trochlear cut was made. The patella was prepared by using the freehand technique and resected 10 mm off the undersurface. The peg guide was placed and the peg holes were drilled. The patella trial was placed. Full extension was easily obtained, 120 degrees of flexion with gravity was easily obtained. There was no anterior/posterior or medial/lateral laxity in flexion or extension. The trials were removed. The joint was irrigated with pulse lavage. A periarticular block was placed in the posterior capsule, medial and lateral retinaculum, extensor mechanism and subcutaneous tissues. The bone ends were irrigated and dried. The tibial baseplate was cemented into position. Excessive cement was removed. The superior surface was irrigated and dried and the polyethylene insert was placed. The distal femur was irrigated and dried and the femoral prosthesis was cemented into position, removing excessive cement. The knee was brought in full extension until the cement had cured. The undersurface of the patella was irrigated and dried. The patellar button was cemented into position. Excessive cement was removed. Once the cement had cured, the knee was taken through a range of motion. Full extension was easily obtained, 120 degrees of flexion with gravity was easily obtained. There was no anterior/posterior or medial/lateral laxity in flexion or extension. The arthrotomy was closed with #2 Tevdek in [id number] interrupted fashion. The knee was flexed. No undue tension at the repair site with a well tracking patella. Subcutaneous tissues were irrigated and dried using a total of 6 liters throughout the procedure. A 0 Vicryl was used for the deep subcutaneous tissue, 2-0 Vicryl for the superficial subcutaneous tissue, omero used on the skin. A soft dressing was applied. The tourniquet was deflated and the patient was transferred to the recovery room awake and in stable condition. Job ID: [id number] DocumentID: [id number] Dictated Date: 12/27/2018 11:05:09 Cable Television Installer Date: 12/27/2018 15:34:24 Dictated By: DOC CHARLTON MD
--- NOTE | 2018-12-27 15:44 | Physical Therapy Evaluation ---
PT Evaluation-General Medical Diagnosis Admission Date Dec 27, 2018 at 07:26 Medical Diagnosis: left TKA Onset Date: Dec 27, 2018 Therapy Diagnosis Therapy Diagnosis: impaired mobility, strength, endurance, ROM Height/Weight Height (Feet): 6 Height (Inches): 1.00 Weight (Pounds): 256 Weight (Ounces): 8.0 Precautions Precautions/Isolations: Fall Prevention, Standard Precautions Weight Bear Status Left Lower Extremity: Left Weight Bearing/Tolerated Referral Physician: Pedro Tobias Reason for Referral: Evaluation/Treatment Medical History Additional Medical History PAST MEDICAL HISTORY: Type 2 diabetes, asthma, arthritis, obstructive sleep apnea. PAST SURGICAL HISTORY: Left knee arthroscopy, trigger finger, left shoulder manipulation. Reviewed History: Yes Social History Home: Single Level Current Living Status: Spouse Entry Into Home: Stairs With Railing PT Steps Into Home: 3 Prior/Core FIM Prior Level of Function Therapy Code Descriptions/Definitions Functional [place] Measure: 0=Not Assessed/NA 4=Minimal Assistance 1=Total Assistance 5=Supervision or Setup 2=Maximal Assistance 6=Modified [place] 3=Moderate Assistance 7=Complete [place] Therapy Quality Codes: 6 Independent with activity with or without an assistive device 5 Patient requires set up or clean up by helper. Patient completes activity by themselves 4 Supervision or touching assist (CGA). [place] provide cues , steadying assist 3 The helper provides less than half the effort to complete the activity 2 The helper provides more than half the effort to complete the activity 1 Dependent. The helper does all the effort to complete an activity 7 Patient refused to complete or attempt activity 9 The patient did not perform the activity before the current illness or injury 88 Not attempted due to Medical conditions or safety concerns Functional Abilities and Goals: Independent: Patient completed the activities by him/herself, with or without an assistive device, with no assistance from a helper. Needed Some Help: Patient needed partial assistance from another person to complete activities. Dependent: A helper completed the activities for the patient. Unknown: Not Applicable: Bed Mobility: 7 Transfers (B,C,W/C) (FIM): 7 Gait: 7 Stairs: 7 Indoor Mobility (Ambulation): Independent Stairs: Independent PT Evaluation-Current Subjective Patient in bed pre tx, agrees to PT, has 7/10 pain in left knee. Patient is very drowsy. He has a nasal canula but it is not turned on. Nurse notified, patient put on 2L and nurse takes O2 after a minute and it is 93%. Pt/Family Goals to be independent at home Objective Patient Orientation: Person, Place, Situation Attachments: SCD's, Oxygen, Polar Pack, IV ROM/Strength ROM Lower Extremities left knee flexion 70 degrees, extension +10 degrees Strength Lower Extremities NT Neuromuscular (Tone, Coordination, Reflexes) NT Sensory Hearing: Functional Sensation Right Lower Extremit: Intact Sensation Left Lower Extremity: Intact Transfers Therapy Code Descriptions/Definitions Functional [place] Measure: 0=Not Assessed/NA 4=Minimal Assistance 1=Total Assistance 5=Supervision or Setup 2=Maximal Assistance 6=Modified [place] 3=Moderate Assistance 7=Complete [place] Transfers (B, C, W/C) (FIM): 4 Scootin Rollin Supine to/from Sit: 4 Sit to/from Stand: 4 Patient needs min assist for supine to sit and sit to stand. Cues for hand placement and positioning. Gait Mode of Locomotion: Walk Anticipated Mode of Locomotion: Walk Gait (FIM): 1 Distance: 15' Gait Level of Assist: 4 Gait Persons Needed: 1 Gait Assistive Device: FWW Comments/Gait Description Patient ambulated 15' with a rolling walker with CGA, cues for safety and direction. Very slow, antalgic. Balance Sitting Static: Normal Sitting Dynamic: Normal Standing Static: Fair Standing Dynamic: Fair Treatment Total knee protocol exercises on the left side x10 (AP, QS, HS, SAQ, SLR). CPM donned and set to patient's leg and set to 60/-2. Assessment/Needs Patient has impaired mobility, strength, endurance, ROM post left TKA. Patient in bed post tx with nurse call, phone, tray, all needs met, in room. SCD's on, polar care on. Rehab Potential: Fair PT Short Term Goals Short Term Goals Time Frame: Jan 03, 2019 Transfers (B,C,W/C) (FIM): 5 Gait (FIM): 2 Gait Distance Comment: 50' Gait Level of Assist: 4 Gait Assistive Device: FWW PT Plan Problem List Problem List: Activity Tolerance, Functional Strength, Safety, Balance, Gait, Transfer, Bed Mobility, ROM Treatment/Plan Treatment Plan: Continue Plan of Care Treatment Plan: Bed Mobility, Education, Functional Activity Ayse, Functional Strength, Gait, Safety, Therapeutic Exercise, Transfers Treatment Duration: Jan 03, 2019 Frequency: 11 times per week Estimated Hrs Per Day: .25 hour per day Patient and/or Family Agrees t: Yes Safety Risks/Education Patient Education: Gait Training, Transfer Techniques, Correct Positioning, Safety Issues Teaching Recipient: Patient Teaching Methods: Demonstration, Discussion Response to Teaching: Reinforcement Needed Discharge Recommendations Plan Patient will perform bed mobility and transfer training, balance and endurance training, functional strengthening, stair training, gait training, and education, to improve functional mobility and independence at home. Therapy D/C Recommendations: Home w/ Family Support Time/GCodes Time In: 1452 Time Out: 1520 Total Billed Treatment Time: 28 Total Billed Treatment 1 visit EVM 20' FA 8' HARISH ROJAS PT Dec 27, 2018 15:44
--- NOTE | 2018-12-27 15:59 | NUR ---
IRF Evaluation Order received to evaluate patient for the ARU. Patient underwent L TKA, today. Will continue to follow patient's progress as it relates to evaluation for rehabilitation program. Thank you for this referral. Addendum: 12/28/18 at 1305 by OCTOBER Owen SANCHEZ SS According to chart it has been coordinated for the patient to return home, with his spouse, as well as [facility] services and FWW; therefore, further evaluation for the ARU will be discontinued.
[2018-12-27] MEDS: CEFUROXIME INJECTION 750 MG in WATER (STERILE) FOR INJECTION 10 ML IV SCH (17:01)
[2018-12-27] MEDS ORDERED: NON-FORMULARY MEDICATION 1 EA EA (Albuterol/Ipratropium (Combivent Respimat Inhal Spray) 1 IH PRN (19:45)
[2018-12-27] MEDS ORDERED: RT-ALBUTEROL/IPRATROPIUM 3 ML (DUONEB) VIAL IH PRN (20:00)
--- NOTE | 2018-12-27 20:00 | NUR ---
THIS RN CONTACTED DR. OROZCO IN REGARDS TO THE PT'S BLOOD PRESSURE BEING 184/92 MANUALLY, WITH A HEART RATE OF 98 BPM. NO NEW ORDERS RECEIVED.
[2018-12-27] MEDS ORDERED: amLODIPine 5 MG (NORVASC) TAB PO NR (20:15)
[2018-12-27] MEDS ORDERED: cloNIDine 0.1 MG (CATAPRES) TAB PO PRN (20:15)
[2018-12-27] MEDS: GABAPENTIN 300 MG (NEURONTIN) CAP PO SCH (20:42)
[2018-12-27] MEDS: FINASTERIDE (PROSCAR) 5 MG TAB PO SCH (20:43)
[2018-12-28] VITALS (8 sets, daily range): BP systolic 144–187; BP diastolic 67–92
[2018-12-28] MEDS: CEFUROXIME INJECTION 750 MG in WATER (STERILE) FOR INJECTION 10 ML IV SCH (00:43)
[2018-12-28] MEDS: oxyCODONE/APAP 5/325MG (PERCOCET 5) TABLET PO PRN ×8 (01:06→22:49)
[2018-12-28] MEDS: NS IV 1000 ML 1,000 ML IV SCH ×3 (03:17→23:01)
[2018-12-28] MEDS: MULTIVIT W/MINERALS TAB (THERAGRAN M) PO SCH (06:37)
[2018-12-28] MEDS: inSUlin ASPART (NovoLOG) 1 UNIT/0.01 ML (CHARGE PER UNIT) SC SCH (06:38)
[2018-12-28 07:21] LABS: BASOPHILS % (AUTO) 0 % (0-10); EOSINOPHILS # (AUTO) 0.1 10^3/uL (0.0-0.3); EOSINOPHILS % (AUTO) 1 % (0-10); HEMATOCRIT 35 % (40-54); LYMPHOCYTES # (AUTO) 0.9 X 10^3 (1.0-4.0); LYMPHOCYTES % (AUTO) 10 % (12-44); MEAN CORPUSCULAR HEMOGLOBIN 28 PG (25-34); MEAN CORPUSCULAR HGB CONC 32 G/DL (32-36); MEAN CORPUSCULAR VOLUME 86 FL (80-99); MEAN PLATELET VOLUME 9.6 FL (7.4-10.4); MONOCYTES % (AUTO) 10 % (0-12); NEUTROPHILS # (AUTO) 7.6 X 10^3 (1.8-7.8); NEUTROPHILS % (AUTO) 80 % (42-75); PLATELET COUNT 218 10^3/uL (130-400); RED CELL DISTRIBUTION WIDTH 14.2 % (10.0-14.5); WHITE BLOOD COUNT 9.5 10^3/uL (4.3-11.0)
[2018-12-28 07:44] LABS: ALANINE AMINOTRANSFERASE 18 U/L (0-55); ALBUMIN 3.6 GM/DL (3.2-4.5); ALKALINE PHOSPHATASE 30 U/L (40-136); BILIRUBIN,TOTAL 1.3 MG/DL (0.1-1.0); BUN/CREATININE RATIO 19; CALCIUM 8.8 MG/DL (8.5-10.1); CARBON DIOXIDE 25 MMOL/L (21-32); CHLORIDE 101 MMOL/L (98-107); CREATININE SERUM 0.98 MG/DL (0.60-1.30); GFR ESTIMATED > 60; GLUCOSE 171 MG/DL (70-105); POTASSIUM 4.5 MMOL/L (3.6-5.0); SODIUM 136 MMOL/L (135-145); TOTAL PROTEIN 6.4 GM/DL (6.4-8.2)
--- NOTE | 2018-12-28 08:07 | Progress Note-Standard ---
Standard Progress Note Progress Notes/Assess & Plan Date Seen by a Provider: Dec 28, 2018 Time Seen by a Provider: 08:06 Progress/Assessment & Plan post op check no complaints radiographs--HW well positioned without fracture LLE--2 plus DP pulse with brisk cap refill. intact sensation throughout. Intact DF and PF of toes and ankle s/p LTKA mobilize as able Final Diagnosis no complaints Vital Signs Date Time Temp Pulse Resp B/P (MAP) Pulse Ox O2 Delivery O2 Flow Rate FiO2 12/28/18 04:00 99.4 91 18 144/67 (92) 98 Nasal Cannula 1.00 12/28/18 02:37 Nasal Cannula 2.00 12/28/18 00:00 99.0 100 18 175/80 (111) 97 Nasal Cannula 1.00 12/27/18 22:55 Nasal Cannula 1.50 12/27/18 21:00 Nasal Cannula 2.00 12/27/18 20:23 98.8 98 20 184/92 (122) 98 Nasal Cannula 1.00 12/27/18 19:34 93 Nasal Cannula 2.00 12/27/18 16:56 158/76 (103) 12/27/18 16:00 98.8 87 18 183/97 (125) 95 Nasal Cannula 1.00 12/27/18 14:52 97.0 16 12/27/18 12:55 Nasal Cannula 0.50 12/27/18 12:45 97.0 79 16 188/86 (120) 93 Nasal Cannula 1.00 12/27/18 12:05 Nasal Cannula 2.00 12/27/18 12:05 98.0 12 98 Nasal Cannula 2 12/27/18 12:00 12 98 Nasal Cannula 2 12/27/18 11:50 14 96 Nasal Cannula 2 12/27/18 11:40 12 100 Nasal Cannula 2 12/27/18 11:30 14 100 OxyMask 5 12/27/18 11:25 98 OxyMask 5 12/27/18 11:20 18 98 OxyMask 10 12/27/18 11:10 14 98 OxyMask 10 12/27/18 11:07 97.7 20 98 OxyMask 10 12/27/18 10:02 98.3 I & O 12/28/18 07:00 Intake Total 2907.5 ml Output Total 800 ml Balance 2107.5 ml Laboratory Tests Test 12/28/18 06:01 12/28/18 06:51 Range/Units Glucometer 157 H 70-110 MG/DL White Blood Count 9.5 4.3-11.0 10^3/uL Red Blood Count 4.00 L 4.35-5.85 10^6/uL Hemoglobin 11.0 L 13.3-17.7 G/DL Hematocrit 35 L 40-54 % Mean Corpuscular Volume 86 80-99 FL Mean Corpuscular Hemoglobin 28 25-34 PG Mean Corpuscular Hemoglobin Concent 32 32-36 G/DL Red Cell Distribution Width 14.2 10.0-14.5 % Platelet Count 218 130-400 10^3/uL Mean Platelet Volume 9.6 7.4-10.4 FL Neutrophils (%) (Auto) 80 H 42-75 % Lymphocytes (%) (Auto) 10 L 12-44 % Monocytes (%) (Auto) 10 0-12 % Eosinophils (%) (Auto) 1 0-10 % Basophils (%) (Auto) 0 0-10 % Neutrophils # (Auto) 7.6 1.8-7.8 X 10^3 Lymphocytes # (Auto) 0.9 L 1.0-4.0 X 10^3 Monocytes # (Auto) 1.0 0.0-1.0 X 10^3 Eosinophils # (Auto) 0.1 0.0-0.3 10^3/uL Basophils # (Auto) 0.0 0.0-0.1 10^3/uL Sodium Level 136 135-145 MMOL/L Potassium Level 4.5 3.6-5.0 MMOL/L Chloride Level 101 98-107 MMOL/L Carbon Dioxide Level 25 21-32 MMOL/L Anion Gap 10 5-14 MMOL/L Blood Urea Nitrogen 19 H 7-18 MG/DL Creatinine 0.98 0.60-1.30 MG/DL Estimat Glomerular Filtration Rate > 60 BUN/Creatinine Ratio 19 Glucose Level 171 H 70-105 MG/DL Calcium Level 8.8 8.5-10.1 MG/DL Corrected Calcium 9.1 8.5-10.1 MG/DL Total Bilirubin 1.3 H 0.1-1.0 MG/DL Aspartate Amino Transf (AST/SGOT) 19 5-34 U/L Alanine Aminotransferase (ALT/SGPT) 18 0-55 U/L Alkaline Phosphatase 30 L 40-136 U/L Total Protein 6.4 6.4-8.2 GM/DL Albumin 3.6 3.2-4.5 GM/DL LLE--dressing intact. NVI distally. No calf tenderness. s/p LTKA continue PT/OT DARRIN CHARLTON MD Dec 28, 2018 08:07
--- NOTE | 2018-12-28 08:37 | Progress Note-Hospitalist ---
Subjective HPI/CC On Admission Date Seen by Provider: Dec 28, 2018 Time Seen by Provider: 08:45 CC: S/p left total knee replacement by Dr. Stanton POD# 0 HPI: This is a 63yoWM clinic patient of Dr. Gregg with a PMH of SANDRA- maintained compliantly on CPAP in addition to severe asthma that required intubation in 2000 maintained on Advair and Combivent without any need of specialty consultation, who presents after an uncomplicated left total knee replacement. At this current time, Pt is drowsy, his is at the bedside and she actually works with a cousin of my husbands and she reports that she knows we will take care of him. I did review his home medication, will check daily labs and monitor him closely and make sure he is using IS. Subjective/Events-last exam Pt had a pretty restless night. Pain is still present from the left knee. RT is here to give him his inhalers. Pt has a very flat affect and doesn't have any significant other details to provide. Reviewed labs and meds. Review of Systems General: Fatigue Musculoskeletal: leg pain Objective Exam Vital Signs Vital Signs Date Time Temp Pulse Resp B/P (MAP) Pulse Ox O2 Delivery O2 Flow Rate FiO2 12/28/18 20:03 93 Nasal Cannula 1.00 12/28/18 19:25 99.4 81 21 147/69 (95) Capillary Refill : Less Than 3 Seconds General Appearance: No Apparent Distress, WD/WN, Chronically ill, Obese HEENT: PERRL/EOMI, Normal ENT Inspection, Pharynx Normal Neck: Full Range of Motion, Normal Inspection, Non Tender, Supple, Carotid Bruit Respiratory: Chest Non Tender, Lungs Clear, Normal Breath Sounds, No Accessory Muscle Use, No Respiratory Distress Cardiovascular: Regular Rate, Rhythm, No Edema, No Gallop, No JVD, No Murmur, Normal Peripheral Pulses Gastrointestinal: Normal Bowel Sounds, No Organomegaly, No Pulsatile Mass, Non Tender, Soft Back: Normal Inspection, No CVA Tenderness, No Vertebral Tenderness Extremity: Normal Capillary Refill, Normal Inspection, Normal Range of Motion (ecept left leg in CPM machine), Non Tender, No Calf Tenderness, No Pedal Edema Neurologic/Psychiatric: Alert, Oriented x3, No Motor/Sensory Deficits, Normal Mood/Affect, Other (sedated subtle) Skin: Normal Color, Warm/Dry Lymphatic: No Adenopathy Results/Procedures Lab Laboratory Tests 12/28/18 06:51 Patient resulted labs reviewed. Assessment/Plan Assessment and Plan Assess & Plan/Chief Complaint Assessment: s/p left knee replacement POD # 1 Asthma moderate persistent DM insulin dependent BPH HTN HLP SANDRA Plan: CPAP/O2 Insulin Monitor labs Nebs if needed Diagnosis/Problems Diagnosis/Problems (1) Status post total left knee replacement Status: Acute (2) SANDRA on CPAP Status: Chronic (3) Diabetes mellitus, insulin dependent (IDDM), controlled Status: Chronic (4) Hypertension Status: Chronic Qualifiers: Hypertension type: essential hypertension Qualified Codes: I10 - Essential (primary) hypertension (5) Asthma Status: Chronic Qualifiers: Asthma severity: moderate Asthma persistence: persistent Asthma complication type: unspecified Qualified Codes: J45.40 - Moderate persistent asthma, uncomplicated Clinical Quality Measures DVT/VTE Risk/Contraindication: Risk Factor Score Per Nursin RFS Level Per Nursing on Admit: 4+=Very High NILSON OROZCO DO Dec 28, 2018 08:37
[2018-12-28] MEDS: RT-ADVAIR HFA 115/21 MCG PER PUFF IH SCH (08:47)
[2018-12-28] MEDS: ENOXAPARIN 30 MG/0.3 ML (LOVENOX) SYR SC SCH ×2 (08:54→20:08)
[2018-12-28] MEDS: amLODIPine 5 MG (NORVASC) TAB PO SCH (08:55)
[2018-12-28] MEDS: ASPIRIN E.C. 81 MG (ECOTRIN) TAB PO SCH (08:55)
[2018-12-28] MEDS: MONTELUKAST 10 MG (SINGULAIR) TAB PO SCH (08:55)
[2018-12-28] MEDS: ENALAPRIL 10 MG (VASOTEC) TAB PO SCH (08:55)
[2018-12-28] MEDS: SENNA W/DOCUSATE (SENOKOT S) TABLET PO SCH ×2 (08:55→20:08)
[2018-12-28] MEDS: GABAPENTIN 300 MG (NEURONTIN) CAP PO SCH ×2 (08:56→20:07)
[2018-12-28] MEDS ORDERED: NON-FORMULARY MEDICATION 1 EA EA (Fluticasone/Salmeterol (Advair 500-50 Diskus) 1 PUFF) IH SCH (09:00)
[2018-12-28] MEDS ORDERED: NON-FORMULARY MEDICATION 1 EA EA (Insulin Aspart (Novolog Flexpen) 5 UNITS) SQ SCH (09:00)
[2018-12-28] MEDS ORDERED: INSULIN DEGLUDEC 65 UNIT SQ SCH (09:00)
--- NOTE | 2018-12-28 10:06 | Anesthesia-General Post-Op ---
General Patient Condition Mental Status/LOC: Same as Preop Cardiovascular: Satisfactory Nausea/Vomiting: Absent Respiratory: Satisfactory Pain: Controlled Complications: Absent Post Op Complications Complications None Follow Up Care/Instructions Patient Instructions None needed. Anesthesia/Patient Condition Patient Condition Patient is doing well, no complaints, stable vital signs, no apparent adverse anesthesia problems. No complications reported per nursing. JACKIE QIU CRNA Dec 28, 2018 10:06
--- NOTE | 2018-12-28 10:40 | Physical Therapy Daily Note ---
PT Daily Note-Current Subjective Patient is very slow to respond, however, agrees to PT. Spouse present for treatment. Pain Numeric Pain Scale: 10-Worst Possible Pain Location: Left Location Body Site: Knee Pain Description: Acute Mental Status Patient Orientation: Normal For Age Attachments: Polar Pack, IV Transfers Therapy Code Descriptions/Definitions Functional [place] Measure: 0=Not Assessed/NA 4=Minimal Assistance 1=Total Assistance 5=Supervision or Setup 2=Maximal Assistance 6=Modified [place] 3=Moderate Assistance 7=Complete [place] Therapy Quality Codes: 6 Independent with activity with or without an assistive device 5 Patient requires set up or clean up by helper. Patient completes activity by themselves 4 Supervision or touching assist (CGA). [place] provide cues , steadying assist 3 The helper provides less than half the effort to complete the activity 2 The helper provides more than half the effort to complete the activity 1 Dependent. The helper does all the effort to complete an activity 7 Patient refused to complete or attempt activity 9 The patient did not perform the activity before the current illness or injury 88 Not attempted due to Medical conditions or safety concerns Transfers (B, C, W/C) (FIM): 3 Scootin Rollin Supine to/from Sit: 3 Sit to/from Stand: 3 Patient appears to have difficulty with motor planning possibly due to pain control. Patient requires mod assist with sit to stand from bed to FWW Weight Bearing Left Lower Extremity: Left Weight Bearing/Tolerated Gait Training Gait (FIM): 4 Distance (FIM): 3=150 ft Distance: 150' Gait Level of Assist: 4 Gait Assistive Device: FWW extended UE's with FWW use/slow, antalgic step to gait sequence Exercises Supine Ex: Ankle pumps, Quad Set, Heel Slides, Straight leg raise Supine Reps: 15 (AAROM with minimal knee flexion with patient resisting all ROM) Seated Therapy Exercises: Long arc quads Seated Reps: 15 Assessment Patient requires much time to complete all functional tasks. He demonstrates very slow gait sequence and requires VC's for body placement in FWW. PT to increase activity as tolerated by patient. PT Short Term Goals Short Term Goals Time Frame: Jan 03, 2019 Transfers (B,C,W/C) (FIM): 5 Gait (FIM): 2 Gait Distance Comment: 50' Gait Level of Assist: 4 Gait Assistive Device: FWW PT Plan Treatment/Plan Treatment Plan: Continue Plan of Care Treatment Plan: Bed Mobility, Education, Functional Activity Ayse, Functional Strength, Gait, Safety, Therapeutic Exercise, Transfers Treatment Duration: Jan 03, 2019 Frequency: 11 times per week Estimated Hrs Per Day: .25 hour per day Patient and/or Family Agrees t: Yes Time/GCodes Time In: 845 Time Out: 930 Total Billed Treatment Time: 45 Total Billed Treatment 1 visit EX 20 min GT x 2 25 min CHRIS PHILLIPS PT Dec 28, 2018 10:40
--- NOTE | 2018-12-28 11:19 | NUR ---
CM/SS, respond to consult. PLAN: Patient plans home with spouse as before. HHC: Coordinated with patient preferred agency [facility]. Patient understands that RN will likely come first for intake with PT sessions to follow. DME: Patient has FWW for home use. Patient/spouse indicate no other needs at this time. Spouse assistive and supportive. Dr. Stanton has provided all necessary orders and those have been provided for [facility], there are no followup orders needed.
--- NOTE | 2018-12-28 14:25 | Occupational Therapy Eval ---
OT Evaluation-General/PLF Medical Diagnosis Admission Date Dec 27, 2018 at 07:26 Medical Diagnosis: left TKA Onset Date: Dec 27, 2018 Therapy Diagnosis Therapy Diagnosis: impaired ADLS and mobility Height/Weight Height (Feet): 6 Height (Inches): 1.00 Weight (Pounds): 256 Weight (Ounces): 8.0 Precautions Precautions/Isolations: Fall Prevention, Standard Precautions Safety Interventions: Reorient-PRN Weight Bear Status Weight Bearing Restriction: Weight Bearing/Tolerated Location Restriction: JULIO C FEET Referral Physician: Pedro Tobias Referral Reason: Activity Tolerance, Self Care, Evaluation/Treatment, Strengthening/ROM Medical History Current History PAST MEDICAL HISTORY: Type 2 diabetes, asthma, arthritis, obstructive sleep apnea. PAST SURGICAL HISTORY: Left knee arthroscopy, trigger finger, left shoulder manipulation. FAMILY HISTORY: Noncontributory. Reviewed History: Yes Social History Home: Single Level Current Living Status: Spouse Entry Into Home: Stairs Without Railing Steps Into Home: 3 ADL-Prior Level of Function Therapy Code Descriptions/Definitions Functional [place] Measure: 0=Not Assessed/NA 4=Minimal Assistance 1=Total Assistance 5=Supervision or Setup 2=Maximal Assistance 6=Modified [place] 3=Moderate Assistance 7=Complete [place] Therapy Quality Codes: 6 Independent with activity with or without an assistive device 5 Patient requires set up or clean up by helper. Patient completes activity by themselves 4 Supervision or touching assist (CGA). [place] provide cues , steadying assist 3 The helper provides less than half the effort to complete the activity 2 The helper provides more than half the effort to complete the activity 1 Dependent. The helper does all the effort to complete an activity 7 Patient refused to complete or attempt activity 9 The patient did not perform the activity before the current illness or injury 88 Not attempted due to Medical conditions or safety concerns Functional Abilities and Goals: Independent: Patient completed the activities by him/herself, with or without an assistive device, with no assistance from a helper. Needed Some Help: Patient needed partial assistance from another person to c omplete activities. Dependent: A helper completed the activities for the patient. Unknown: Not Applicable: ADL PLOF Comments per pt an dpt spouse pt indep. PLOF using no AD. pt retired. Self Care: Independent Functional Cognition: Independent DME/Equipment: Bath Chair, Grab Bars, Shower, Tub/Shower Drive Self: Yes OT Current Status Subjective pt ambulated in hallway with PT. PT session ended and OT took over for evaluation. pt agreed to OT evaluation. spouse present for session. pt c/o no p ain at this time. Pain Numeric Pain Scale: 0-No Pain Mental Status/Objective Patient Orientation: Person, Place, Time, Situation Attachments: IV, Oxygen Current Glasses/Contacts: Yes Hearing Aids: No Dentures/Partials: No Hand Dominance: Right Upper Extremity ROM WFL Upper Extremity Coordination WFL Upper Extremity Sensation WFL Upper Extremity Strength WFL ADL-Treatment Therapy Code Descriptions/Definitions Functional [place] Measure: 0=Not Assessed/NA 4=Minimal Assistance 1=Total Assistance 5=Supervision or Setup 2=Maximal Assistance 6=Modified [place] 3=Moderate Assistance 7=Complete [place] Therapy Quality Codes: 6 Independent with activity with or without an assistive device 5 Patient requires set up or clean up by helper. Patient completes activity by themselves 4 Supervision or touching assist (CGA). [place] provide cues , steadying assist 3 The helper provides less than half the effort to complete the activity 2 The helper provides more than half the effort to complete the activity 1 Dependent. The helper does all the effort to complete an activity 7 Patient refused to complete or attempt activity 9 The patient did not perform the activity before the current illness or inj ury 88 Not attempted due to Medical conditions or safety concerns OT Short Term Goals Short Term Goals Grooming(FIM): 5 Bathing(FIM): 5 Upper Body Dressing(FIM): 5 Lower Body Dressing(FIM): 5 Toileting(FIM): 5 Transfers (B,C,W/C) (FIM): 5 Toilet/Commode Transfer(FIM): 5 1=Demonstrate adherence to instructed precautions during ADL tasks. 2=Patient will verbalize/demonstrate understanding of assistive devices/modifications for ADL. 3=Patient will improve strength/tolerance for activity to enable patient to perform ADL's. OT Regulatory Compliance Coordinator Goals Regulatory Compliance Coordinator Goals Grooming(FIM): 6 (standing at sink) Bathing(FIM): 6 Bathing Location: L Arm, R Arm, L Upper Leg, R Upper Leg, L Lower Leg (including foot), R Lower Leg (including foot), Chest, Abdomen, Buttocks, Perineal Area Upper Body Dressing(FIM): 6 Lower Body Dressing(FIM): 6 Toileting(FIM): 6 Transfers (B,C,W/C) (FIM): 6 Toilet/Commode Transfer(FIM): 6 1=Demonstrate adherence to instructed precautions during ADL tasks. 2=Patient will verbalize/demonstrate understanding of assistive devices/modifications for ADL. 3=Patient will improve strength/tolerance for activity to enable patient to perform ADL's. OT Education/Plan Problem List/Assessment Assessment: Decreased Activ Tolerance, Decreased Safety Aware, Impaired Funct Balance, Impaired I ADL's, Impaired Self-Care Skills pt presents with functional limitations affecting areas of ADLS and functional transfers with deficits in the above mention. currently pt required TA for LB dressing, CGA for UB dressing., MOD A for bed mobility , and CGA for functional transfers. pt demo ability to ambulate with RW approx 60 ft with CGA at slow pace. noted Julio C ft pointed outward during functional mobility. pt would benefit from OT services to increase independence with ADLS and functional transfers.anticipate d/c home with family support. Discharge Recommendations Plan/Recommendations: Continue POC Therapy D/C Recommendations: Home w/ Family Support Equpiment Recommendations-D/C: None Treatment Plan/Plan of Care Treatment,Training & Education: Yes Patient would benefit from OT for education, treatment and training to promote independence in ADL's, mobility, safety and/or upper extremity function for ADL's. Plan of Care: ADL Retraining, Functional Mobility, Group Exercise/Act as Ind, UE Funct Exercise/Act Treatment Duration: Jan 11, 2019 Frequency: 5 times per week Estimated Hrs Per Day: .25 hour per day Agreement: Yes Rehab Potential: Fair Time/GCodes Start Time: 13:23 Stop Time: 13:40 Billed Treatment Time evm 17 minutes EMY KANG OT Dec 28, 2018 14:25
--- NOTE | 2018-12-28 14:34 | Physical Therapy Daily Note ---
PT Daily Note-Current Subjective Patient is more alert this p.m. and agrees to PT. Pain Numeric Pain Scale: 8 Location: Left Location Body Site: Knee Pain Description: Acute Mental Status Patient Orientation: Normal For Age Attachments: Polar Pack, IV Transfers Therapy Code Descriptions/Definitions Functional [place] Measure: 0=Not Assessed/NA 4=Minimal Assistance 1=Total Assistance 5=Supervision or Setup 2=Maximal Assistance 6=Modified [place] 3=Moderate Assistance 7=Complete [place] Therapy Quality Codes: 6 Independent with activity with or without an assistive device 5 Patient requires set up or clean up by helper. Patient completes activity by themselves 4 Supervision or touching assist (CGA). [place] provide cues , steadying assist 3 The helper provides less than half the effort to complete the activity 2 The helper provides more than half the effort to complete the activity 1 Dependent. The helper does all the effort to complete an activity 7 Patient refused to complete or attempt activity 9 The patient did not perform the activity before the current illness or injury 88 Not attempted due to Medical conditions or safety concerns Transfers (B, C, W/C) (FIM): 4 Scootin Supine to/from Sit: 4 Sit to/from Stand: 4 Bed to/from Chair: 5 Weight Bearing Left Lower Extremity: Left Weight Bearing/Tolerated Gait Training Gait (FIM): 5 Distance (FIM): 3=150 ft Distance: 225' Gait Level of Assist: 5 Gait Assistive Device: FWW trunk flexed posture with extended UE's with FWW use. Very slow, antalgic gait sequence Exercises Seated Therapy Exercises: Ankle pumps, Long arc quads Seated Reps: 15 Treatments CPM 0-70 degrees with polar pack in place Assessment Patient tolerated treatment well and is on CPM with needs met. PT to increase activity as tolerated by patient. PT Short Term Goals Short Term Goals Time Frame: Jan 03, 2019 Transfers (B,C,W/C) (FIM): 5 Gait (FIM): 2 Gait Distance Comment: 50' Gait Level of Assist: 4 Gait Assistive Device: FWW PT Plan Treatment/Plan Treatment Plan: Continue Plan of Care Treatment Plan: Bed Mobility, Education, Functional Activity Ayse, Functional Strength, Gait, Safety, Therapeutic Exercise, Transfers Treatment Duration: Jan 03, 2019 Frequency: 11 times per week Estimated Hrs Per Day: .25 hour per day Patient and/or Family Agrees t: Yes Time/GCodes Time In: 1300 Time Out: 1323 Total Billed Treatment Time: 23 Total Billed Treatment 1 visit EX 8 min GT 15 min CHRIS PHILLIPS PT Dec 28, 2018 14:34
[2018-12-28] MEDS ORDERED: meTOprolol SUCCINATE 100 MG (TOPROL XL) TAB PO NR (16:30)
--- NOTE | 2018-12-28 16:32 | NUR ---
PT BP ELEVATED. CONTACTED DR. SHIRLEY. ORDERED TOPROL XL 100 MG NOW AND THEN DAILY. HE ORDERED EKG TO BE CONDUCTED AND PLACED ON CHART. HE WILL CONSULT W PT LATER TONIGHT.
[2018-12-28] MEDS: FINASTERIDE (PROSCAR) 5 MG TAB PO SCH (20:07)
--- NOTE | 2018-12-28 20:54 | Consultation-Cardiology ---
HPI-Cardiology Cardiology Consultation: Date of Consultation 12/28/18 Time Seen by a Provider: 20:00 Date of Admission Attending Physician Doc Stanton MD Admitting Physician Joel Gregg DO Consulting Physician EZEKIEL SHIRLEY MD, MA, FACP, FACC, FSCAI, CCDS Physician requesting consult: Dr Woodward HPI: Chief Complaint: Reason for consultation: Hypertension HPI 63 yo man s/p L TKR on 12/27/18. Notes discomfort at site of surgery. No cp or palp or syncope. Has chronic, exertional shortness of breath. Has a h/o SANDRA. Report gen malaise. No recent fever or chills. Chronic, mild, intermittent leg swelling Review of Systems-Cardiology Review of Systems Constitutional: malaise; No weight loss, No weight gain Eyes: No vision change Ears/Nose/Throat: No ear discharge, No nasal drainage, No recent hearing loss Respiratory: no symptoms reported Cardiovascular: As described under HPI Gastrointestinal: No diarrhea, No nausea, No vomiting Genitourinary: No dysuria, No hematuria, No urine frequency changes Musculoskeletal: back pain (chronic), joint pain (chronic) Skin: No rash, No ulcerations Psychiatric/Neurological: No seizure, No focal weakness Hematologic: No bleeding abnormalities All Other Systems Reviewed Negative Unless Noted: Yes [id number] Hx Patient Social History Marrital Status: Employed/Student: unemployed Alcohol Use: Denies Use Recreational Drug Use: No Smoking Status: Never a Smoker 2nd Hand Smoke Exposure: No Recent Foreign Travel: No Recent Infectious Disease Expo: No Physical Abuse Screen: No Sexual Abuse: No Immunizations Up To Date Date of Pneumonia Vaccine: Apr 10, 2018 Past Medical History PMH As described under Assessment. Family Medical History Family Medical History: No fam h/o early CAD or SCD Allergies and Home Medications Allergies Coded Allergies: No Known Drug Allergies (Unverified , 12/21/18) Home Medications Albuterol/Ipratropium 4 Gm Aero, 1 PUFF IH Q6H PRN for SHORTNESS OF BREATH, (Reported) Diclofenac Sodium 100 Gm Gel..gram., 1 GM TP Q8H PRN for KNEE PAIN, (Reported) Enalapril Maleate 10 Mg Tablet, 20 MG PO DAILY, (Reported) TAKES 2 (10MG) TABLETS Finasteride 5 Mg Tablet, 5 MG PO HS, (Reported) Fluticasone/Salmeterol 1 Each Blst.w.dev, 1 PUFF IH DAILY, (Reported) Gabapentin 300 Mg Capsule, 600 MG PO BID, (Reported) TAKES 2 (300MG) CAPSULES Insulin Aspart 300 Units/3 Ml Solution, 5 UNITS SQ DAILY, (Reported) Insulin Degludec 100 Unit/1 Ml Insuln.pen, 65 UNIT SQ DAILY, (Reported) Metformin HCl 1,000 Mg Tablet, 1,000 MG PO BID, (Reported) Montelukast Sodium 10 Mg Tablet, 10 MG PO DAILY, (Reported) Oxycodone HCl/Acetaminophen 1 Each Tablet, 1 TAB PO Q4H Prescribed by: DOC STANTON on 12/27/18 0916 Patient Home Medication List Home Medication List Reviewed: Yes Physical Exam-Cardiology Physical Exam Vital Signs/I&O 12/28/18 12/28/18 12/28/18 12/28/18 09:29 12:11 12:41 15:40 Temp 98.7 Pulse 95 Resp 20 B/P (MAP) 163/77 (105) Pulse Ox 94 96 97 O2 Delivery Nasal Cannula Nasal Cannula Nasal Cannula Nasal Cannula O2 Flow Rate 2.00 1.00 1.00 1.00 12/28/18 12/28/18 12/28/18 12/28/18 16:10 16:11 17:30 19:25 Temp 98.4 99.4 Pulse 104 81 Resp 22 21 B/P (MAP) 187/83 (117) 178/90 (119) 158/92 (114) 147/69 (95) Pulse Ox 97 94 O2 Delivery Nasal Cannula Nasal Cannula O2 Flow Rate 1.00 1.00 12/28/18 20:03 Pulse Ox 93 O2 Delivery Nasal Cannula O2 Flow Rate 1.00 12/28/18 00:00 Intake Total 1500 ml Output Total 250 ml Balance 1250 ml Capillary Refill : Less Than 3 Seconds Constitutional: AAO x 3, well-developed, well-nourished HEENT: EOMI, hearing is well preserved; No xanthelasmas are seen Neck: carotid pulses are 2 + bilaterally, with good upstrokes Respiratory: No accessory muscle use; other (good bilat air entry that is somewhat diminished at the bases) Cardiovascular: regular rate-rhythm, S1 and S2, systolic murmur (faint MICHELLE at card base) Gastrointestinal: No tender; soft; No guarding, No rebound; audible bowel kee nds Extremities: swelling (mild, bilat leg edema); No clubbing, No cyanosis Neurologic/Psychiatric: oriented x 3, grossly intact, power is 5/5 both on sides Skin: No rash on exposed areas, No ulcerations on exposed areas Data Review Labs Laboratory Tests 12/28/18 06:01: Glucometer 157H 12/28/18 06:51: White Blood Count 9.5, Red Blood Count 4.00L, Hemoglobin 11.0L, Hematocrit 35L, Mean Corpuscular Volume 86, Mean Corpuscular Hemoglobin 28, Mean Corpuscular Hemoglobin Concent 32, Red Cell Distribution Width 14.2, Platelet Count 218, Mean Platelet Volume 9.6, Neutrophils (%) (Auto) 80H, Lymphocytes (%) (Auto) 10L , Monocytes (%) (Auto) 10, Eosinophils (%) (Auto) 1, Basophils (%) (Auto) 0, Neutrophils # (Auto) 7.6, Lymphocytes # (Auto) 0.9L, Monocytes # (Auto) 1.0, Eosinophils # (Auto) 0.1, Basophils # (Auto) 0.0, Sodium Level 136, Potassium Level 4.5, Chloride Level 101, Carbon Dioxide Level 25, Anion Gap 10, Blood Urea Nitrogen 19H, Creatinine 0.98, Estimat Glomerular Filtration Rate > 60, BUN/Creatinine Ratio 19, Glucose Level 171H, Calcium Level 8.8, Corrected Calcium 9.1, Total Bilirubin 1.3H, Aspartate Amino Transf (AST/SGOT) 19, Alanine Aminotransferase (ALT/SGPT) 18, Alkaline Phosphatase 30L, Total Protein 6.4, Albumin 3.6 Laboratory Tests 12/28/18 06:51 A/P-Cardiology Assessment/Admission Diagnosis Uncontrolled hypertension Sinus tach on ECG of 12/28/18 DM II SANDRA Discussion and Recomendations * ECG obtained: no evidence of ischemia * BB for hypertension and heart rate control * Continue amlodipine and enalapril * Echo * Monitor labs * I answered his CV-related questions Clinical Quality Measures DVT/VTE Risk/Contraindication: Risk Factor Score Per Nursin RFS Level Per Nursing on Admit: 4+=Very High EZEKIEL SHIRLEY MD [facility] Dec 28, 2018 20:54
--- NOTE | 2018-12-28 21:46 | DISCHARGE SUMMARY ---
DATE OF SERVICE: DIAGNOSES: 1. Left knee primary osteoarthritis. 2. Type 2 diabetes mellitus. 3. Asthma. 4. Obstructive sleep apnea. PROCEDURE: Left total knee arthroplasty. SUMMARY: The patient is a 63-year-old gentleman who was admitted on the day of his left total knee arthroplasty, which he underwent without complications. Postoperatively, he did well. At the time of discharge, his wound was clean and dry. No calf tenderness. Negative Homans sign. He was tolerating his diet well and tolerating pain with oral pain medication. CONDITION ON DISCHARGE: Good. DISCHARGE DIET: Regular. FOLLOWUP: Follow up is in three weeks. ACTIVITY: Weightbearing as tolerated with a walker left lower extremity. Home physical therapy has been arranged. DISCHARGE MEDICATIONS: Home medications and aspirin. DIET: Diabetic. Job ID: [id number] DocumentID: [id number] Dictated Date: 12/28/2018 12:00:31 Group Exercise Instructor Date: 12/28/2018 21:45:12 Dictated By: DARRIN CHARLTON MD
[2018-12-29] VITALS: BP 140/72
[2018-12-29 04:40] VITALS: BP 180/80
[2018-12-29] MEDS: oxyCODONE/APAP 5/325MG (PERCOCET 5) TABLET PO PRN ×4 (05:03→20:37)
[2018-12-29] MEDS: MULTIVIT W/MINERALS TAB (THERAGRAN M) PO SCH (06:18)
[2018-12-29] MEDS: inSUlin ASPART (NovoLOG) 1 UNIT/0.01 ML (CHARGE PER UNIT) SC SCH (06:19)
--- NOTE | 2018-12-29 07:09 | Progress Note-Standard ---
Standard Progress Note Progress Notes/Assess & Plan Date Seen by a Provider: Dec 29, 2018 Time Seen by a Provider: 07:08 Progress/Assessment & Plan post op check no complaints radiographs--HW well positioned without fracture LLE--2 plus DP pulse with brisk cap refill. intact sensation throughout. Intact DF and PF of toes and ankle s/p LTKA mobilize as able Final Diagnosis no complaints Vital Signs Date Time Temp Pulse Resp B/P (MAP) Pulse Ox O2 Delivery O2 Flow Rate FiO2 12/29/18 01:49 92 Nasal Cannula 1.00 12/28/18 22:31 91 Room Air 12/28/18 21:17 Nasal Cannula 2.00 12/28/18 20:03 93 Nasal Cannula 1.00 12/28/18 19:25 99.4 81 21 147/69 (95) 94 Nasal Cannula 1.00 12/28/18 17:30 158/92 (114) 12/28/18 16:11 178/90 (119) 12/28/18 16:10 98.4 104 22 187/83 (117) 97 Nasal Cannula 1.00 12/28/18 15:40 97 Nasal Cannula 1.00 12/28/18 12:41 98.7 95 20 163/77 (105) 96 Nasal Cannula 1.00 12/28/18 12:11 94 Nasal Cannula 1.00 12/28/18 09:29 Nasal Cannula 2.00 12/28/18 08:47 91 Nasal Cannula 1.00 12/28/18 08:28 98.5 93 21 155/80 (105) 95 Nasal Cannula 1.00 I & O 12/29/18 07:00 Intake Total 2559 ml Output Total 700 ml Balance 1859 ml LLE--incision clean. No calf tenderness. Neg Foreign's. Neg SLR s/p LTKA PT/OT DC home later today IF tolerating PO pain meds and clears PT DARRIN CHARLTON MD Dec 29, 2018 07:09
[2018-12-29 07:15] LABS: BASOPHILS % (AUTO) 0 % (0-10); EOSINOPHILS # (AUTO) 0.1 10^3/uL (0.0-0.3); EOSINOPHILS % (AUTO) 1 % (0-10); HEMATOCRIT 32 % (40-54); HEMOGLOBIN 10.4 G/DL (13.3-17.7); LYMPHOCYTES # (AUTO) 1.1 X 10^3 (1.0-4.0); LYMPHOCYTES % (AUTO) 11 % (12-44); MEAN CORPUSCULAR HEMOGLOBIN 28 PG (25-34); MEAN CORPUSCULAR HGB CONC 32 G/DL (32-36); MEAN CORPUSCULAR VOLUME 86 FL (80-99); MEAN PLATELET VOLUME 9.5 FL (7.4-10.4); MONOCYTES % (AUTO) 10 % (0-12); NEUTROPHILS # (AUTO) 7.6 X 10^3 (1.8-7.8); NEUTROPHILS % (AUTO) 77 % (42-75); PLATELET COUNT 225 10^3/uL (130-400); RED CELL DISTRIBUTION WIDTH 14.4 % (10.0-14.5); WHITE BLOOD COUNT 9.9 10^3/uL (4.3-11.0)
[2018-12-29] MEDS ORDERED: morphine INJ 4 MG/ML 1 ML (VIAL/SYRINGE) IVP PRN (07:15)
[2018-12-29 07:37] LABS: ALANINE AMINOTRANSFERASE 29 U/L (0-55); ALBUMIN 3.7 GM/DL (3.2-4.5); ALKALINE PHOSPHATASE 28 U/L (40-136); BILIRUBIN,TOTAL 1.5 MG/DL (0.1-1.0); BUN/CREATININE RATIO 19; CALCIUM 9.1 MG/DL (8.5-10.1); CARBON DIOXIDE 22 MMOL/L (21-32); CHLORIDE 102 MMOL/L (98-107); CREATININE SERUM 0.93 MG/DL (0.60-1.30); GFR ESTIMATED > 60; GLUCOSE 171 MG/DL (70-105); POTASSIUM 4.2 MMOL/L (3.6-5.0); SODIUM 134 MMOL/L (135-145); TOTAL PROTEIN 6.8 GM/DL (6.4-8.2)
--- NOTE | 2018-12-29 08:30 | NUR ---
BOBCAT DRIVER/LABOR pump discontinued. Wasted 89 cc with Leigha STUART
[2018-12-29 08:32] VITALS: BP 155/77
[2018-12-29] MEDS: MONTELUKAST 10 MG (SINGULAIR) TAB PO SCH (09:35)
[2018-12-29] MEDS: amLODIPine 5 MG (NORVASC) TAB PO SCH (09:35)
[2018-12-29] MEDS: SENNA W/DOCUSATE (SENOKOT S) TABLET PO SCH ×2 (09:35→20:35)
[2018-12-29] MEDS: ENOXAPARIN 30 MG/0.3 ML (LOVENOX) SYR SC SCH ×2 (09:35→20:36)
[2018-12-29] MEDS: GABAPENTIN 300 MG (NEURONTIN) CAP PO SCH ×2 (09:36→20:36)
[2018-12-29] MEDS: ASPIRIN E.C. 81 MG (ECOTRIN) TAB PO SCH (09:36)
[2018-12-29] MEDS: meTOprolol SUCCINATE 100 MG (TOPROL XL) TAB PO SCH (09:36)
[2018-12-29] MEDS: ENALAPRIL 10 MG (VASOTEC) TAB PO SCH (09:40)
--- NOTE | 2018-12-29 09:53 | Physical Therapy Daily Note ---
PT Daily Note-Current Subjective Patient reluctantly agrees to PT. He is emotional due to pain. Pain Numeric Pain Scale: 10-Worst Possible Pain Location: Left Location Body Site: Knee Pain Description: Acute Mental Status Patient Orientation: Normal For Age Transfers Therapy Code Descriptions/Definitions Functional [place] Measure: 0=Not Assessed/NA 4=Minimal Assistance 1=Total Assistance 5=Supervision or Setup 2=Maximal Assistance 6=Modified [place] 3=Moderate Assistance 7=Complete [place] Therapy Quality Codes: 6 Independent with activity with or without an assistive device 5 Patient requires set up or clean up by helper. Patient completes activity by themselves 4 Supervision or touching assist (CGA). [place] provide cues , steadying assist 3 The helper provides less than half the effort to complete the activity 2 The helper provides more than half the effort to complete the activity 1 Dependent. The helper does all the effort to complete an activity 7 Patient refused to complete or attempt activity 9 The patient did not perform the activity before the current illness or injury 88 Not attempted due to Medical conditions or safety concerns Transfers (B, C, W/C) (FIM): 5 Scootin Supine to/from Sit: 5 Sit to/from Stand: 5 Bed to/from Chair: 5 patient requires much time to complete all functional tasks Weight Bearing Left Lower Extremity: Left Weight Bearing/Tolerated Gait Training Gait (FIM): 5 Distance (FIM): 3=150 ft Distance: 225' x 2 Gait Level of Assist: 5 Gait Assistive Device: FWW extremely slow, step to gait sequence Stair Training Stair Training: Handrails/: 1 handrail, uses walker Stairs (FIM): 1 #of Steps: 2 Stairs: Pattern: Step to Level of Assist: 5 Exercises Supine Ex: Ankle pumps, Quad Set, Heel Slides Supine Reps: 10 (resistive with all AAROM) Seated Therapy Exercises: Long arc quads Seated Reps: 15 (very resistive with all AAROM) Treatments CPM 0-90 degrees with polar pack in place Assessment Patient is very self limiting with all mobility and exercises. PT educated patient on importance of performing exercises and increasing mobility independently to receive full benefit from elective surgery. Patient voices understanding, however, is not demonstrating such. PT Short Term Goals Short Term Goals Time Frame: Jan 03, 2019 Transfers (B,C,W/C) (FIM): 5 Gait (FIM): 2 Gait Distance Comment: 50' Gait Level of Assist: 4 Gait Assistive Device: FWW PT Plan Treatment/Plan Treatment Plan: Continue Plan of Care Treatment Plan: Bed Mobility, Education, Functional Activity Ayse, Functional Strength, Gait, Safety, Therapeutic Exercise, Transfers Treatment Duration: Jan 03, 2019 Frequency: 11 times per week Estimated Hrs Per Day: .25 hour per day Patient and/or Family Agrees t: Yes Time/GCodes Time In: 840 Time Out: 930 Total Billed Treatment Time: 50 Total Billed Treatment 1 visit EX 16 min FA 16 min GT 18 min CHRIS PHILLIPS PT Dec 29, 2018 09:53
--- NOTE | 2018-12-29 10:30 | Progress Note-Hospitalist ---
Subjective HPI/CC On Admission Date Seen by Provider: Dec 29, 2018 Time Seen by Provider: 09:45 CC: S/p left total knee replacement by Dr. Stanton POD# 0 HPI: This is a 63yoWM clinic patient of Dr. Gregg with a PMH of SANDRA- maintained compliantly on CPAP in addition to severe asthma that required intubation in 2000 maintained on Advair and Combivent without any need of specialty consultation, who presents after an uncomplicated left total knee replacement. At this current time, Pt is drowsy, his is at the bedside and she actually works with a cousin of my husbands and she reports that she knows we will take care of him. I did review his home medication, will check daily labs and monitor him closely and make sure he is using IS. Subjective/Events-last exam Patient having difficulty breathing recovery due to pain Difficult walking with physical therapy minimal amount achieved No asthma issues Bowels moving small amounts there is not really eating much Overall having real difficulty in the recovery phase from his knee replacement Review of Systems General: Fatigue Musculoskeletal: leg pain Objective Exam Vital Signs Vital Signs Date Time Temp Pulse Resp B/P (MAP) Pulse Ox O2 Delivery O2 Flow Rate FiO2 12/29/18 08:32 98.4 72 16 155/77 (103) 92 Nasal Cannula 1.00 Capillary Refill : Less Than 3 Seconds General Appearance: WD/WN, Chronically ill, Moderate Distress, Obese HEENT: PERRL/EOMI, Normal ENT Inspection, Pharynx Normal Neck: Full Range of Motion, Normal Inspection, Non Tender, Supple, Carotid Bruit Respiratory: Chest Non Tender, Lungs Clear, Normal Breath Sounds, No Accessory Muscle Use, No Respiratory Distress Cardiovascular: Regular Rate, Rhythm, No Edema, No Gallop, No JVD, No Murmur, Normal Peripheral Pulses Gastrointestinal: Normal Bowel Sounds, No Organomegaly, No Pulsatile Mass, Non Tender, Soft Back: Normal Inspection, No CVA Tenderness, No Vertebral Tenderness Extremity: Normal Capillary Refill, Normal Inspection, Normal Range of Motion (ecept left leg in CPM machine), Non Tender, No Calf Tenderness, No Pedal Edema Neurologic/Psychiatric: Alert, Oriented x3, No Motor/Sensory Deficits, Normal Mood/Affect, Other (sedated subtle) Skin: Normal Color, Warm/Dry Lymphatic: No Adenopathy Results/Procedures Lab Laboratory Tests 12/29/18 06:48 Patient resulted labs reviewed. Assessment/Plan Assessment and Plan Assess & Plan/Chief Complaint Assessment: s/p left knee replacement POD # 2 with slow recovery and increased pain limiting PT Asthma moderate persistent DM insulin dependent BPH HTN HLP SANDRA Plan: CPAP/O2 Insulin Monitor labs Nebs if needed Diagnosis/Problems Diagnosis/Problems (1) Status post total left knee replacement Status: Acute (2) SANDRA on CPAP Status: Chronic (3) Diabetes mellitus, insulin dependent (IDDM), controlled Status: Chronic (4) Hypertension Status: Chronic Qualifiers: Hypertension type: essential hypertension Qualified Codes: I10 - Essential (primary) hypertension (5) Asthma Status: Chronic Qualifiers: Asthma severity: moderate Asthma persistence: persistent Asthma co mplication type: unspecified Qualified Codes: J45.40 - Moderate persistent asthma, uncomplicated Clinical Quality Measures DVT/VTE Risk/Contraindication: Risk Factor Score Per Nursin RFS Level Per Nursing on Admit: 4+=Very High NILSON OROZCO DO Dec 29, 2018 10:30
[2018-12-29] MEDS: RT-ADVAIR HFA 115/21 MCG PER PUFF IH SCH (10:33)
[2018-12-29 12:00] VITALS: BP 192/93
--- NOTE | 2018-12-29 13:23 | Occupational Ther Daily Note ---
OT Current Status-Daily Note Subjective pt laying in bed upon OT arrival. present in room. pt agreed to OT TX session with focus on increasing independence with LB dressing/ AE Pain Numeric Pain Scale: 5-Moderate Pain Location: Left Location Body Site: Knee Pain Description: Ache Mental Status/Objective Therapy Code Descriptions/Definitions Functional [place] Measure: 0=Not Assessed/NA 4=Minimal Assistance 1=Total Assistance 5=Supervision or Setup 2=Maximal Assistance 6=Modified [place] 3=Moderate Assistance 7=Complete [place] ADL-Treatment Lower Body Dressing (FIM): 3 Transfers (B, C, W/C) (FIM): 5 (increase timing bed to chair) pt required additional timing to perform bed mobility. pt education on proper positioning/ hand placement. pt perform supine to sit with MIN A. once seated EOB noted right lateral lean. pt education on proper sitting position. pt stated "I can't" pt education that knee surgery did not affect UE/ Truck control. pt stated "oh yeah" then sat up independently. pt perform sit to stand with additional time and transfer to recliner chair with SBA using RW and additional timing. once in chair pt education on use of AE (sock aid, it desktop support specialist, shoe horn, LHS.) pt verbalized understanding and demo ability to doff Onofre socks using dressing stick . pt attempt to use sock aid but additional training will be required. AE left in pt room to practice with. pt spouse order AE from [employer]. pt sitting in recliner chair post OT Session. call light within reach, all needs met. Education OT Patient Education: Energy conservation, Instructions to caregiver, Modified ADL techniques, Progress toward Goal/Update tx plan, Purpose of tx/functional activities, Reviewed precautions, Safety issues, Transfer techniques, Use of adapted equipment Teaching Recipient: Patient, Significant Other Teaching Methods: Demonstration, Discussion Response to Teaching: Verbalize Understanding, Return Demonstration OT Short Term Goals Short Term Goals Grooming(FIM): 5 Bathing(FIM): 5 Upper Body Dressing(FIM): 5 Lower Body Dressing(FIM): 5 Toileting(FIM): 5 Transfers (B,C,W/C) (FIM): 5 Toilet/Commode Transfer(FIM): 5 1=Demonstrate adherence to instructed precautions during ADL tasks. 2=Patient will verbalize/demonstrate understanding of assistive devices/modifications for ADL. 3=Patient will improve strength/tolerance for activity to enable patient to perform ADL's. OT Manufacturing Support Engineer Goals Skilled Nursing Goals Grooming(FIM): 6 (standing at sink) Bathing(FIM): 6 Bathing Location: L Arm, R Arm, L Upper Leg, R Upper Leg, L Lower Leg (including foot), R Lower Leg (including foot), Chest, Abdomen, Buttocks, Perineal Area Upper Body Dressing(FIM): 6 Lower Body Dressing(FIM): 6 Toileting(FIM): 6 Transfers (B,C,W/C) (FIM): 6 Toilet/Commode Transfer(FIM): 6 1=Demonstrate adherence to instructed precautions during ADL tasks. 2=Patient will verbalize/demonstrate understanding of assistive devices/modifications for ADL. 3=Patient will improve strength/tolerance for activity to enable patient to perform ADL's. OT Education/Plan Problem List/Assessment Assessment: Decreased Activ Tolerance, Decreased Safety Aware, Decreased UE Strength, Impaired Bed Mobility, Impaired Funct Balance, Impaired I ADL's, Impaired Self-Care Skills pt presents with functional limitations affecting areas of ADLS and functional transfers with deficits in the above mention. currently pt required TA for LB dressing, CGA for UB dressing., MOD A for bed mobility , and CGA for functional transfers. pt demo ability to ambulate with RW approx 60 ft with CGA at slow pace. noted Onofre ft pointed outward during functional mobility. pt would benefit from OT services to increase independence with ADLS and functional transfers.anticipate d/c home with family support. however, pt would benefit from acute inpt rehab to increase independence with ADLS and for safe transition to home. Discharge Recommendations Plan/Recommendations: Continue POC Therapy D/C Recommendations: Acute Rehab Treatment Plan/Plan of Care Treatment,Training & Education: Yes Patient would benefit from OT for education, treatment and training to promote independence in ADL's, mobility, safety and/or upper extremity function for ADL's. Plan of Care: ADL Retraining, Functional Mobility, Group Exercise/Act as Ind, UE Funct Exercise/Act Treatment Duration: Jan 11, 2019 Frequency: 5 times per week Estimated Hrs Per Day: .25 hour per day Agreement: Yes Rehab Potential: Fair Time/GCodes Start Time: 11:20 Stop Time: 12:05 Billed Treatment Time ADL 45 minutes, 3 units EMY KANG OT Dec 29, 2018 13:22
--- NOTE | 2018-12-29 14:47 | Physical Therapy Daily Note ---
PT Daily Note-Current Subjective Patient is in recliner and reluctantly agrees to PT. Patient appears very "groggy" Pain Numeric Pain Scale: 10-Worst Possible Pain Location: Left Location Body Site: Knee Pain Description: Acute Mental Status Patient Orientation: [place] Transfers Therapy Code Descriptions/Definitions Functional [place] Measure: 0=Not Assessed/NA 4=Minimal Assistance 1=Total Assistance 5=Supervision or Setup 2=Maximal Assistance 6=Modified [place] 3=Moderate Assistance 7=Complete [place] Therapy Quality Codes: 6 Independent with activity with or without an assistive device 5 Patient requires set up or clean up by helper. Patient completes activity by themselves 4 Supervision or touching assist (CGA). [place] provide cues , steadying assist 3 The helper provides less than half the effort to complete the activity 2 The helper provides more than half the effort to complete the activity 1 Dependent. The helper does all the effort to complete an activity 7 Patient refused to complete or attempt activity 9 The patient did not perform the activity before the current illness or injury 88 Not attempted due to Medical conditions or safety concerns Transfers (B, C, W/C) (FIM): 4 Scootin Sit to/from Stand: 4 Patient requires a significant amount of time to perform sit to stand due to difficulty with motor planning and was unable to stand erect and take a step due to falling asleep in standing position. Weight Bearing Left Lower Extremity: Left Weight Bearing/Tolerated Exercises Seated Therapy Exercises: Ankle pumps, Long arc quads Seated Reps: 15 (AAROM with patient resisting all ROM due to pain and difficulty with following simple direction) Assessment Patient unable to perform gait training this p.m. due to extreme fa tigue/grogginess. Physician notified. Plan dismissal to home tomorrow. PT Short Term Goals Short Term Goals Time Frame: Jan 03, 2019 Transfers (B,C,W/C) (FIM): 5 Gait (FIM): 2 Gait Distance Comment: 50' Gait Level of Assist: 4 Gait Assistive Device: FWW PT Plan Treatment/Plan Treatment Plan: Continue Plan of Care Treatment Plan: Bed Mobility, Education, Functional Activity Ayse, Functional Strength, Gait, Safety, Therapeutic Exercise, Transfers Treatment Duration: Jan 03, 2019 Frequency: 11 times per week Estimated Hrs Per Day: .25 hour per day Patient and/or Family Agrees t: Yes Time/GCodes Time In: 1320 Time Out: 1350 Total Billed Treatment Time: 30 Total Billed Treatment 1 visit EX 15 min FA 15 min CHRIS PHILLIPS PT Dec 29, 2018 14:47
--- NOTE | 2018-12-29 15:44 | Progress Note-Cardiology ---
Cardiology SOAP Progress Note Subjective: No cp or palp or syncope or shortness of breath Discomfort at site of surgery Objective: I&O/Vital Signs 12/29/18 12/29/18 12/29/18 12/29/18 04:40 08:32 09:00 10:33 Temp 98.4 Pulse 72 Resp 16 B/P (MAP) 180/80 (113) 155/77 (103) Pulse Ox 92 90 O2 Delivery Nasal Cannula Room Air Room Air O2 Flow Rate 1.00 12/29/18 12:00 Temp 98.0 Pulse 88 Resp 19 B/P (MAP) 192/93 (126) Pulse Ox 94 O2 Delivery Nasal Cannula O2 Flow Rate 1.00 12/29/18 00:00 Intake Total 2484 ml Output Total 700 ml Balance 1784 ml Weight (Pounds): 256 Weight (Ounces): 8.0 Weight (Calculated Kilograms): 116.688114 Constitutional: AAO x 3, well-developed, well-nourished Respiratory: No accessory muscle use; other (good bilat air entry that is somewhat diminished at the bases) Cardiovascular: regular rate-rhythm, S1 and S2, systolic murmur (faint MICHELLE at card base) Gastrointestional: No tender; soft; No guarding, No rebound; audible bowel sounds Extremities: swelling (mild, bilat leg edema); No clubbing, No cyanosis Neurologic/Psychiatric: oriented x 3, grossly intact, power is 5/5 both on sides Skin: No rash on exposed areas, No ulcerations on exposed areas Results/Procedures: Labs Laboratory Tests 12/29/18 06:48: White Blood Count 9.9, Red Blood Count 3.77L, Hemoglobin 10.4L, Hematocrit 32L, Mean Corpuscular Volume 86, Mean Corpuscular Hemoglobin 28, Mean Corpuscular Hemoglobin Concent 32, Red Cell Distribution Width 14.4, Platelet Count 225, Mean Platelet Volume 9.5, Neutrophils (%) (Auto) 77H, Lymphocytes (%) (Auto) 11L , Monocytes (%) (Auto) 10, Eosinophils (%) (Auto) 1, Basophils (%) (Auto) 0, Neutrophils # (Auto) 7.6, Lymphocytes # (Auto) 1.1, Monocytes # (Auto) 1.0, Eosinophils # (Auto) 0.1, Basophils # (Auto) 0.0, Sodium Level 134L, Potassium Level 4.2, Chloride Level 102, Carbon Dioxide Level 22, Anion Gap 10, Blood Urea Nitrogen 18, Creatinine 0.93, Estimat Glomerular Filtration Rate > 60, BUN/Creatinine Ratio 19, Glucose Level 171H, Calcium Level 9.1, Corrected Calcium 9.3, Total Bilirubin 1.5H, Aspartate Amino Transf (AST/SGOT) 27, Alanine Aminotransferase (ALT/SGPT) 29, Alkaline Phosphatase 28L, Total Protein 6.8, Albumin 3.7 A/P: Assessment: Hypertension Echo of 12/29/18: LVEF 60-65%, mild MAC, mild to mod enlargement of LA, RVSP 40 mmHg DM II SANDRA Plan: * BP elev likely partly related to pain * Toprol XL, amlodipine and enalapril for bp control * I explained echo results to him and his * Monitor labs * Dr Mcallister covering Card Svce over the weekend EZEKIEL SHIRLEY MD FACP FAC CCDS Dec 29, 2018 15:44
[2018-12-29] MEDS ORDERED: amLODIPine 5 MG (NORVASC) TAB PO NR (15:45)
[2018-12-29 16:00] VITALS: BP 192/93
[2018-12-29] MEDS: FINASTERIDE (PROSCAR) 5 MG TAB PO SCH (20:36)
[2018-12-30] VITALS: BP 161/70
[2018-12-30 05:06] LABS: BASOPHILS % (AUTO) 0 % (0-10); EOSINOPHILS # (AUTO) 0.1 10^3/uL (0.0-0.3); EOSINOPHILS % (AUTO) 1 % (0-10); HEMATOCRIT 31 % (40-54); HEMOGLOBIN 9.7 G/DL (13.3-17.7); LYMPHOCYTES # (AUTO) 1.5 X 10^3 (1.0-4.0); LYMPHOCYTES % (AUTO) 16 % (12-44); MEAN CORPUSCULAR HEMOGLOBIN 27 PG (25-34); MEAN CORPUSCULAR HGB CONC 32 G/DL (32-36); MEAN CORPUSCULAR VOLUME 86 FL (80-99); MONOCYTES % (AUTO) 11 % (0-12); NEUTROPHILS # (AUTO) 6.5 X 10^3 (1.8-7.8); NEUTROPHILS % (AUTO) 72 % (42-75); PLATELET COUNT 218 10^3/uL (130-400); RED CELL DISTRIBUTION WIDTH 14.2 % (10.0-14.5); WHITE BLOOD COUNT 9.1 10^3/uL (4.3-11.0)
[2018-12-30 05:28] LABS: BUN/CREATININE RATIO 21; CARBON DIOXIDE 27 MMOL/L (21-32); CHLORIDE 102 MMOL/L (98-107); CREATININE SERUM 0.92 MG/DL (0.60-1.30); SODIUM 139 MMOL/L (135-145)
[2018-12-30 05:29] LABS: ALANINE AMINOTRANSFERASE 38 U/L (0-55); ALBUMIN 3.6 GM/DL (3.2-4.5); ALKALINE PHOSPHATASE 32 U/L (40-136); BILIRUBIN,TOTAL 0.9 MG/DL (0.1-1.0); CALCIUM 9.5 MG/DL (8.5-10.1); GFR ESTIMATED > 60; GLUCOSE 81 MG/DL (70-105); TOTAL PROTEIN 6.8 GM/DL (6.4-8.2)
[2018-12-30] MEDS: inSUlin ASPART (NovoLOG) 1 UNIT/0.01 ML (CHARGE PER UNIT) SC SCH (06:20)
[2018-12-30] MEDS: MULTIVIT W/MINERALS TAB (THERAGRAN M) PO SCH (06:20)
[2018-12-30] MEDS: RT-ADVAIR HFA 115/21 MCG PER PUFF IH SCH (07:38)
[2018-12-30 08:00] VITALS: BP 142/70
--- NOTE | 2018-12-30 08:14 | Progress Note-Standard ---
Standard Progress Note Progress Notes/Assess & Plan Date Seen by a Provider: Dec 30, 2018 Time Seen by a Provider: 08:13 Progress/Assessment & Plan post op check no complaints radiographs--HW well positioned without fracture LLE--2 plus DP pulse with brisk cap refill. intact sensation throughout. Intact DF and PF of toes and ankle s/p LTKA mobilize as able Final Diagnosis more mobile today. less groggy Vital Signs Date Time Temp Pulse Resp B/P (MAP) Pulse Ox O2 Delivery O2 Flow Rate FiO2 12/30/18 07:38 92 Room Air 12/30/18 01:25 90 Room Air 12/30/18 00:00 98.9 74 20 161/70 (100) 94 Nasal Cannula 1.00 12/29/18 21:00 Nasal Cannula 2.00 12/29/18 16:00 99.2 87 20 192/93 (126) 94 Nasal Cannula 1.00 12/29/18 12:00 98.0 88 19 192/93 (126) 94 Nasal Cannula 1.00 12/29/18 10:33 90 Room Air 12/29/18 09:00 Room Air 12/29/18 08:32 98.4 72 16 155/77 (103) 92 Nasal Cannula 1.00 I & O 12/30/18 07:00 Intake Total 2200 ml Output Total 2375 ml Balance -175 ml Laboratory Tests Test 12/30/18 04:05 Range/Units White Blood Count 9.1 4.3-11.0 10^3/uL Red Blood Count 3.57 L 4.35-5.85 10^6/uL Hemoglobin 9.7 L 13.3-17.7 G/DL Hematocrit 31 L 40-54 % Mean Corpuscular Volume 86 80-99 FL Mean Corpuscular Hemoglobin 27 25-34 PG Mean Corpuscular Hemoglobin Concent 32 32-36 G/DL Red Cell Distribution Width 14.2 10.0-14.5 % Platelet Count 218 130-400 10^3/uL Mean Platelet Volume 10.0 7.4-10.4 FL Neutrophils (%) (Auto) 72 42-75 % Lymphocytes (%) (Auto) 16 12-44 % Monocytes (%) (Auto) 11 0-12 % Eosinophils (%) (Auto) 1 0-10 % Basophils (%) (Auto) 0 0-10 % Neutrophils # (Auto) 6.5 1.8-7.8 X 10^3 Lymphocytes # (Auto) 1.5 1.0-4.0 X 10^3 Monocytes # (Auto) 1.0 0.0-1.0 X 10^3 Eosinophils # (Auto) 0.1 0.0-0.3 10^3/uL Basophils # (Auto) 0.0 0.0-0.1 10^3/uL Sodium Level 139 135-145 MMOL/L Potassium Level 4.0 3.6-5.0 MMOL/L Chloride Level 102 98-107 MMOL/L Carbon Dioxide Level 27 21-32 MMOL/L Anion Gap 10 5-14 MMOL/L Blood Urea Nitrogen 19 H 7-18 MG/DL Creatinine 0.92 0.60-1.30 MG/DL Estimat Glomerular Filtration Rate > 60 BUN/Creatinine Ratio 21 Glucose Level 81 70-105 MG/DL Calcium Level 9.5 8.5-10.1 MG/DL Corrected Calcium 9.8 8.5-10.1 MG/DL Total Bilirubin 0.9 0.1-1.0 MG/DL Aspartate Amino Transf (AST/SGOT) 36 H 5-34 U/L Alanine Aminotransferase (ALT/SGPT) 38 0-55 U/L Alkaline Phosphatase 32 L 40-136 U/L Total Protein 6.8 6.4-8.2 GM/DL Albumin 3.6 3.2-4.5 GM/DL LLE--dressing intact. no calf tenderness. neg Foreign's s/p LTKA improved DC home after PT today DARRIN CHARLTON MD Dec 30, 2018 08:14
[2018-12-30] MEDS: meTOprolol SUCCINATE 100 MG (TOPROL XL) TAB PO SCH (08:59)
[2018-12-30] MEDS: ENOXAPARIN 30 MG/0.3 ML (LOVENOX) SYR SC SCH (08:59)
[2018-12-30] MEDS: ASPIRIN E.C. 81 MG (ECOTRIN) TAB PO SCH (08:59)
[2018-12-30] MEDS: GABAPENTIN 300 MG (NEURONTIN) CAP PO SCH (09:00)
[2018-12-30] MEDS ORDERED: amLODIPine 5 MG (NORVASC) TAB PO SCH (09:00)
[2018-12-30] MEDS ORDERED: amLODIPine 10 MG (NORVASC) TAB PO SCH (09:00)
[2018-12-30] MEDS: SENNA W/DOCUSATE (SENOKOT S) TABLET PO SCH (09:00)
[2018-12-30] MEDS: MONTELUKAST 10 MG (SINGULAIR) TAB PO SCH (09:00)
[2018-12-30] MEDS: ENALAPRIL 10 MG (VASOTEC) TAB PO SCH (09:00)
[2018-12-30 12:25] VITALS: BP 142/70
--- NOTE | 2018-12-30 12:33 | Progress Note-Hospitalist ---
Subjective HPI/CC On Admission Date Seen by Provider: Dec 30, 2018 Time Seen by Provider: 10:30 CC: S/p left total knee replacement by Dr. Stanton POD# 0 HPI: This is a 63yoWM clinic patient of Dr. Gregg with a PMH of SANDRA- maintained compliantly on CPAP in addition to severe asthma that required intubation in 2000 maintained on Advair and Combivent without any need of specialty consultation, who presents after an uncomplicated left total knee replacement. At this current time, Pt is drowsy, his is at the bedside and she actually works with a cousin of my husbands and she reports that she knows we will take care of him. I did review his home medication, will check daily labs and monitor him closely and make sure he is using IS. Subjective/Events-last exam Ready for discharge today Pain is well controlled Had a large bowel movement and doing well from that and No urinary retention Using incentive spirometer No nebulizer treatments were required Using inhalers and back on all home meds Review of Systems General: Fatigue Musculoskeletal: leg pain Objective Exam Vital Signs Vital Signs Date Time Temp Pulse Resp B/P (MAP) Pulse Ox O2 Delivery O2 Flow Rate FiO2 12/30/18 09:00 Nasal Cannula 2.00 12/30/18 08:00 98.7 82 20 142/70 (94) 94 Capillary Refill : Less Than 3 Seconds General Appearance: WD/WN, Chronically ill, Moderate Distress, Obese HEENT: PERRL/EOMI, Normal ENT Inspection, Pharynx Normal Neck: Full Range of Motion, Normal Inspection, Non Tender, Supple, Carotid Bruit Respiratory: Chest Non Tender, Lungs Clear, Normal Breath Sounds, No Accessory Muscle Use, No Respiratory Distress Cardiovascular: Regular Rate, Rhythm, No Edema, No Gallop, No JVD, No Murmur, Normal Peripheral Pulses Gastrointestinal: Normal Bowel Sounds, No Organomegaly, No Pulsatile Mass, Non Tender, Soft Back: Normal Inspection, No CVA Tenderness, No Vertebral Tenderness Extremity: Normal Capillary Refill, Normal Inspection, Normal Range of Motion (ecept left leg in CPM machine), Non Tender, No Calf Tenderness, No Pedal Edema Neurologic/Psychiatric: Alert, Oriented x3, No Motor/Sensory Deficits, Normal Mood/Affect, Other (sedated subtle) Skin: Normal Color, Warm/Dry Lymphatic: No Adenopathy Results/Procedures Lab Laboratory Tests 12/30/18 04:05 Patient resulted labs reviewed. Assessment/Plan Assessment and Plan Assess & Plan/Chief Complaint Assessment: s/p left knee replacement POD # 3 with slow recovery and increased pain limiting PT Asthma moderate persistent DM insulin dependent BPH HTN HLP SANDRA Plan: CPAP/O2 Insulin Monitor labs Nebs if needed DC home Diagnosis/Problems Diagnosis/Problems (1) Status post total left knee replacement Status: Acute (2) SANDRA on CPAP Status: Chronic (3) Diabetes mellitus, insulin dependent (IDDM), controlled Status: Chronic (4) Hypertension Status: Chronic Qualifiers: Hypertension type: essential hypertension Qualified Codes: I10 - Essential (primary) hypertension (5) Asthma Status: Chronic Qualifiers: Asthma severity: moderate Asthma persistence: persistent Asthma complication type: unspecified Qualified Codes: J45.40 - Moderate persistent asthma, uncomplicated Clinical Quality Measures DVT/VTE Risk/Contraindication: Risk Factor Score Per Nursin RFS Level Per Nursing on Admit: 4+=Very High NILOSN OROZCO DO Dec 30, 2018 12:33
--- NOTE | 2018-12-30 14:15 | Physical Therapy Daily Note ---
PT Daily Note-Current Subjective Pt in bed, agreeable with encouragement. Pt moves very slowly and heavily self- limits due to pain in (L) knee. Pain Numeric Pain Scale: 8 Location: Left Location Body Site: Knee Pain Description: Stabbing Comment: only with moving in/out of bed Mental Status Patient Orientation: Person, Place, Time, Situation Attachments: Polar Pack Transfers Therapy Code Descriptions/Definitions Functional [place] Measure: 0=Not Assessed/NA 4=Minimal Assistance 1=Total Assistance 5=Supervision or Setup 2=Maximal Assistance 6=Modified [place] 3=Moderate Assistance 7=Complete [place] Therapy Quality Codes: 6 Independent with activity with or without an assistive device 5 Patient requires set up or clean up by helper. Patient completes activity by themselves 4 Supervision or touching assist (CGA). [place] provide cues , steadying assist 3 The helper provides less than half the effort to complete the activity 2 The helper provides more than half the effort to complete the activity 1 Dependent. The helper does all the effort to complete an activity 7 Patient refused to complete or attempt activity 9 The patient did not perform the activity before the current illness or injury 88 Not attempted due to Medical conditions or safety concerns Transfers (B, C, W/C) (FIM): 4 Supine to/from Sit: 4 Sit to/from Stand: 4 (raised bed height) Weight Bearing Left Lower Extremity: Left Weight Bearing/Tolerated Gait Training Gait (FIM): 5 Distance (FIM): 3=150 ft Distance: 225 Gait Level of Assist: 5 Gait Persons Needed: 1 Gait Assistive Device: FWW Pt ambulates with very slow, step-to, antalgic gait. Pt keeps (L) knee in flexion and hip in ER despite max skilled VCS. Limited to no heel strike on (L). Treatments Transfer training and gait training with FWW. In recliner with needs met. Pt education with Pt and spouse re: positioning of (L) LE to promote knee extension, ice/elevation to control swelling, TFR techniques, gait sequencing on stairs, and importance of increasing activity, performing knee HEP. Assessment Current Status: Fair Progress Pt tolerated fair. Difficulty with supine->sit->stand transfer due to self- limiting due to (L) knee pain. Despite max VCS and education, Pt has limited he el strike and demonstrates significant knee flexion on (L) during stance phase of gait. PT Short Term Goals Short Term Goals Time Frame: Jan 03, 2019 Transfers (B,C,W/C) (FIM): 5 Gait (FIM): 2 Gait Distance Comment: 50' Gait Level of Assist: 4 Gait Assistive Device: FWW PT Plan Problem List Problem List: Activity Tolerance, Functional Strength, Safety, Balance, Gait, Transfer, Bed Mobility, ROM Treatment/Plan Treatment Plan: Continue Plan of Care Treatment Plan: Bed Mobility, Education, Functional Activity Ayse, Functional Strength, Gait, Safety, Therapeutic Exercise, Transfers Treatment Duration: Jan 03, 2019 Frequency: 11 times per week Estimated Hrs Per Day: .25 hour per day Patient and/or Family Agrees t: Yes Safety Risks/Education Patient Education: Gait Training, Transfer Techniques, Steps, Reviewed Use of Ice, Correct Positioning Teaching Recipient: Patient, Significant Other Teaching Methods: Demonstration, Discussion Response to Teaching: Verbalize Understanding, Return Demonstration, Reinforcement Needed Discharge Recommendations Therapy D/C Recommendations: Physical Therapy Home Care Barriers to Progress pain Time/GCodes Time In: 1014 Time Out: 1052 Total Billed Treatment Time: 38 Total Billed Treatment 1, FA x 15', GT x 23' G Codes Necessary: SEPIDEH Toribio DPT Dec 30, 2018 14:14
== END 2018-12-30 12:25 | disposition home health service (06) | DRG 470 ==
LOC: 4TH 07:26 → SURG 07:27 → 4TH 12:00
PROVIDERS: ADMIT Orthopaedic Surgery; ATTEND Orthopaedic Surgery
PROC: 0SRD0J9 Replacement of Left Knee Joint with Synthetic Substitute, Cemented, Open Approach (ICD-10-PCS; principal; 2018-12-27 09:36)
DX: M17.12 Unilateral primary osteoarthritis, left knee (principal); J45.40 Moderate persistent asthma, uncomplicated; J44.9 Chronic obstructive pulmonary disease, unspecified; G47.33 Obstructive sleep apnea (adult) (pediatric); E11.42 Type 2 diabetes mellitus with diabetic polyneuropathy; I10 Essential (primary) hypertension; E78.00 Pure hypercholesterolemia, unspecified; N40.0 Benign prostatic hyperplasia without lower urinary tract symptoms; E66.9 Obesity, unspecified; S09.90XS Unspecified injury of head, sequela; R56.9 Unspecified convulsions; V89.9XXS Person injured in unspecified vehicle accident, sequela; Z68.33 Body mass index [BMI] 33.0-33.9, adult; Z79.4 Long term (current) use of insulin
CPT/HCPCS: 36415; 73560; 80053; 82962; 85025; 86850; 86900; 86901; 93005; 93306; 94640; 94664; 94760

== ENCOUNTER → 2019-05-10 | Outpatient (CLI) | payer BC ==
[~2019-05-10] MED LIST changes: +OXYC1TAB87 PO
--- NOTE | 2019-05-10 12:41 | Diagnostic Imaging Report ---
PROCEDURE: US left lower extremity venous. TECHNIQUE: Multiple real-time grayscale images were obtained over the left lower extremity in various projections. Additional duplex Doppler and color Doppler images were also obtained. INDICATION: Leg pain and swelling. There are no prior studies available for comparison. FINDINGS: There is generally good blood flow and compressibility at all levels. There is no evidence for deep venous thrombosis. IMPRESSION: There is no evidence for deep venous thrombosis of the left lower extremity. Dictated by: Dictated on workstation # [id number]
== END ==
LOC: RAD 10:32
PROVIDERS: ATTEND Orthopaedic Surgery
DX: M79.89 Other specified soft tissue disorders (principal); Z96.652 Presence of left artificial knee joint

== ENCOUNTER → 2021-04-03 | Outpatient (CLI) | payer BC ==
[~2021-04-03] MED LIST changes: -ENAL10TA PO; +ENAL10TA16 PO; -MONT10TA24 PO; +MONT10TA32 PO
== END ==
LOC: CARD 10:20
PROVIDERS: ATTEND Nurse Practitioner Family
DX: I11.9 Hypertensive heart disease without heart failure (principal); I27.21 Secondary pulmonary arterial hypertension
CPT/HCPCS: 93306

== ENCOUNTER → 2021-04-10 | Outpatient (CLI) | payer BC ==
[~2021-04-10] VITALS: Ht 182 cm; Wt 111.0 kg
[~2021-04-10] MED LIST changes: +REGADENOSON 0.4 MG/5 ML SYR (LEXISCAN) IV ONE
[2021-04-10] MEDS: CATHETER FLUSH 10 ML SYR IV PRN ×2 (07:05→08:53)
[2021-04-10 08:51] VITALS: BP 171/81
--- NOTE | 2021-04-13 13:42 | STRESS TEST ---
DATE OF SERVICE: 04/10/2021 RESTING AND POST REGADENOSON TECHNETIUM-99M TETROFOSMIN SPECT CT IMAGING ORDERING PHYSICIAN: Alice Sutton APRN PRIMARY PHYSICIAN: Dr. Gregg. CLINICAL DIAGNOSIS: Chest discomfort. Baseline images were carried out after injection of 10.91 mCi of technetium-99m Tetrofosmin. This was followed by 0.4 mg regadenoson and 28 mCi of technetium-99m Tetrofosmin for stress imaging. The electrocardiogram showed sinus rhythm with right bundle branch block at baseline. It did not change significantly with the regadenoson infusion. The patient tolerated the procedure well. Review of images at rest and following stress does not indicate any significant perfusion defects consistent with myocardial ischemia or infarction. Gated images show normal global left ventricular systolic function with normal regional wall motion. Left ventricular ejection fraction is calculated to be 66%. CONCLUSIONS: 1. No evidence of any significant myocardial ischemia or infarction on this study. 2. Normal regional wall motion. 3. Normal global left ventricular systolic function with a calculated ejection fraction of 66%. Job ID: [id number] DocumentID: [id number] Dictated Date: 04/13/2021 12:51:51 Associate Professor Of Music Date: 04/13/2021 13:41:24 Dictated By: EZEKIEL SHIRLEY MD, MA, FACP, FACC,
== END ==
LOC: CARD 07:30
PROVIDERS: ATTEND Nurse Practitioner Family
DX: R07.89 Other chest pain (principal)
CPT/HCPCS: 78452; 93017; A9502